=== PATIENT | female | born 1935 | race Caucasian/White ===

== ENCOUNTER 2024-02-08 10:47 | Emergency (ER) | payer MEDICARE, OTHER, SELFPAY ==
[2024-02-08 11:08] VITALS: BP 174/76
[2024-02-08 11:22] VITALS: BMI 22.9
[2024-02-08 11:33] VITALS: BP 157/74
[2024-02-08 11:49] LABS: Hematocrit 33.3 % (37.0-47.0); Hemoglobin 11.2 g/dL (12.0-16.0); Mean Corp Hgb Conc. 33.6 g/dL (33.0-37.0); Mean Corpuscular Hgb 28.7 pg (27.0-31.0); Mean Corpuscular Volume 85.4 fL (81.0-99.0); Mean Platelet Volume 9.6 fL (7.4-10.4); Platelet Count 256 10^3/uL (130-400); Red Cell Dist. Width 13.5 % (11.5-14.5); White Blood Cell Count 9.1 10^3/uL (4.8-10.8)
[2024-02-08 11:55] LABS: ALT (SGPT) 16 U/L (0-35); AST (SGOT) 26 U/L (14-36); Alkaline Phosphatase 84 U/L (38-126); Blood Urea Nitrogen 25 mg/dl (7-17); Calcium 9.4 mg/dl (8.4-10.2); Carbon Dioxide 26 mmol/L (22-30); Chloride 105 mmol/L (98-107); Estimated Creatinine Clearance 38 ml/min; Glucose 168 mg/dl (70-99); Potassium 3.9 mmol/L (3.5-5.1); Sodium 144 mmol/L (135-145); Total Bilirubin 0.4 mg/dl (0.2-1.3); Total Protein 6.6 g/dl (6.3-8.2); eGFR > 60.00
[2024-02-08 12:00] VITALS: BP 174/68
[2024-02-08] MEDS: OMNIPAQUE 50 ML PO (12:04)
[2024-02-08] MEDS: NSS 500 IV (12:05)
[2024-02-08 12:10] LABS: % Basophils 0.6 % (0-2); % Immature Granulocytes 1.1 % (0-0.5); % Lymphocytes 18.1 % (20.5-51.1); % Neutrophils 71.2 % (42.2-75.2); Absolute Basophils 0.1 10^3/uL (0-0.2); Absolute Immature Granulocytes 0.1 10^3/uL (0-0.05); Absolute Lymphocytes 1.6 10^3/uL (1.2-3.4); Absolute Monocytes 0.8 10^3/uL (0.1-0.6); Absolute Neutrophils 6.5 10^3/uL (1.4-6.5); Nucleated Red Blood Cells % 0 %
--- NOTE | 2024-02-08 12:15 | ED.GENMED ---
History of Present Illness
General
Chief Complaint: Abdominal Pain
Source: patient and family
Exam Limitations: none
Time Seen by Provider: 02/08/24 11:19
Nursing documentation reviewed up to this point in time: agreed with
History of Present Illness
History of Present Illness:
Patient is an 88-year-old female who presents to the emergency department with left lower quadrant pain as well as diarrhea. Patient started 1 week ago with diarrhea, chills and mild anorexia. Stool was liquidy without blood or melena. Patient
denies any travel history or antibiotics. Patient has a known diverticular disease and in the past required 3 units of blood because of a diverticular bleed. Patient's diarrhea seemed to clear up about 3 days ago but then had an episode last night
and developed pain which has increased. Patient no longer has fever or chills. Patient denies diminished appetite, nausea or vomiting. Patient denies symptoms. Patient does feel somewhat distended.
Past History
Past History
ED Past Medical History: HTN and Other (Osteoarthritis, gallstones, peptic ulcer disease, diverticular disease)
Social History
Tobacco: Non-smoker
Review of Systems
Review of Systems
All Other Systems: ROS reviewed and negative except as documented in HPI and ROS
Constitutional: Reports chills; Denies fever
EENT: Reports no symptoms
Respiratory: Reports no symptoms
Cardiac: Reports no symptoms
ABD/GI: Reports abdominal pain and diarrhea; Denies nausea, vomiting, bloody stools or black stools
: Reports no symptoms
Musculoskeletal: Reports no symptoms
Skin: Reports no symptoms
Neurological: Reports no symptoms
Hematologic/Lymphatic: Reports no symptoms
Phy Exam
Physical Exam
Physical Exam:
Physical Exam
General: mild distress, alert and appropriate, well nourished, well hydrated
HENT: Normocephalic, supple
Eyes: Clear sclera, conjuctiva without injection
Heart: Regular rhythm and rate. No S3, S4. No murmur.
Lungs: No respiratory distress, no stridor, lung sounds clear and equal bilaterally
Abdomen: Soft, moderate left lower quadrant tenderness with mild guarding but no rebound, no organomegaly, no CVA tenderness, BS good
Neuro: Alert and oriented x 3, CN II - XII intact, no motor focality, no cerebellar dysfunction
Skin: no rash
Psychiatric: well kept. interactive and cooperative
Extremities: No edema, cyanosis, tenderness
Scores
Heart Failure Risk
Heart Failure Risk Score: Not Applicable
Heart Score for Chest Pain Patients
STEMI patient?: Not applicable
Withdrawal Assessment of Alcohol
Withdrawal Assessment Completed?: Not applicable
Course
Orders/Labs/Results
Orders:
Orders
02/08/24 11:23
IV Insert/Care/Rem.- Treatment PRN
02/08/24 11:36
Complete Blood Count/With Diff Urgent
Comprehensive Metabolic Panel Urgent
02/08/24 11:57
0.9% Sodium Chloride 500 ml [Nss] 500 ml IV BOLUS
Iohexol [Omnipaque] See Protocol PO NOW STA
02/08/24 11:58
CT Abd/pel W Iv And Oral Contr Urgent
Comment:
Reason For Exam: Left lower quadrant tenderness
02/08/24 15:01
LevoFLOXacin 500 mg IVPB NOW LevoFLOXacin 500 MG/100 ML [Levaquin] 500 mg in 100 ml IV NOW
MetroNIDAZOLE IVPB 500 mg IVPB NOW MetroNIDAZOLE 500 MG/100 ML [Flagyl 500 mg] 100 ml IV NOW
Abnormal Lab Results
02/08/24
11:36
RBC 3.90 L 10^6/uL
(4.20-5.40)
Hgb 11.2 L g/dL
(12.0-16.0)
Hct 33.3 L %
(37.0-47.0)
Abs Immat Gran (auto) 0.1 H 10^3/uL
(0-0.05)
Absolute Monos (auto) 0.8 H 10^3/uL
(0.1-0.6)
Immature Gran % 1.1 H %
(0-0.5)
Lymphocytes % 18.1 L %
(20.5-51.1)
BUN 25 H mg/dl
(7-17)
Glucose 168 H mg/dl
(70-99)
02/08/24 11:36
02/08/24 11:36
Vital Signs
Initial and Last Documented VS:
Initial Vital Signs
Temp Pulse Resp BP Pulse Ox
98.1 F 74 16 174/76 97
02/08/24 11:08 02/08/24 11:08 02/08/24 11:08 02/08/24 11:08 02/08/24 11:08
Last Documented Vital Signs
Temp Pulse Resp BP Pulse Ox
98.1 F 74 16 213/87 99
02/08/24 11:08 02/08/24 11:08 02/08/24 11:08 02/08/24 14:53 02/08/24 14:53
*Radiology
Radiology exam reviewed: preliminary read by ED provider (Acute diverticulitis)
*Pulse Oximetry
Patient hypoxic: no
*EKG
Interpreted by ED Provider?: NA
*Telehealth Case Manager Interpretation
Rate: Telehealth Case Manager- N/A
*Critical Care Note
Total Time (30-74mins, 75-104mins- exclusive of procedures): Not Applicable
ED Attending Note
-
Portions of this chart may have been created with voice recognition software.� Occasional wrong word or��sound alike� substitutions may have occurred due to the inherent limitations of voice recognition software.
Discharge Plan
Departure
Patient Disposition: Home (Routine Discharge)
Date of Disposition: 02/08/24
Time of Disposition: 15:03
Patient with high blood pressure during this ER visit?: Yes
Condition: Fair
Covid-19: Not Applicable
Discharge Problem:
Acute diverticulitis of intestine
Instructions: Low Fiber Diet, Diverticulitis (DC)
Prescriptions:
New
metronidazole 500 mg tablet
500 mg PO TID Qty: 30 0RF
levofloxacin 500 mg Tablet
500 mg PO DAILY Qty: 10 0RF
Referrals:
UNKNOWN - PT DOES,NOT KNOW [Family Provider] -
Interventions
Interventions:
*Risk Screen - Suicide Last Done: 02/08/24 11:08
*General Assessment Last Done: 02/08/24 11:08
*Neglect/Abuse Screening Last Done: 02/08/24 11:08
ED- Fall Risk Assessment Last Done: 02/08/24 11:22
*ED COVID-19 Vaccine History Last Done: 02/08/24 11:22
YS-Zpghry-Zplwfvtpdl Assessment Last Done: 02/08/24 11:22
Discharge Date and Time
Print Language: GREEK
[2024-02-08 14:51] VITALS: BP 201/89
[2024-02-08 14:53] VITALS: BP 213/87
[2024-02-08] MEDS: FLAGYL 500 MG 100 IV (15:07)
[2024-02-08 15:11] VITALS: BP 216/79
[2024-02-08] MEDS: LEVAQUIN 100 IV (15:39)
== END 2024-02-08 16:19 | disposition home or self-care (01) ==
LOC: EMR 10:47
PROVIDERS: EMERGENCY PHYSICIAN Emergency Medicine
DX: K57.92 Diverticulitis of intestine, part unspecified, without perforation or abscess without bleeding (principal); R19.7 Diarrhea, unspecified; M19.90 Unspecified osteoarthritis, unspecified site; Z87.11 Personal history of peptic ulcer disease
CPT/HCPCS: 99284; 96365; 96367; 74177; 80053; 85025; Q9967

== ENCOUNTER 2024-05-17 16:03 | Inpatient (IN) | payer OTHER, SELFPAY ==
[2024-05-17 14:16] VITALS: BP 191/93
[2024-05-17 14:36] LABS: % Basophils 0.7 % (0-2); % Immature Granulocytes 1.1 % (0-0.5); % Lymphocytes 19.3 % (20.5-51.1); % Monocytes 8.5 % (1.7-9.3); % Neutrophils 70.4 % (42.2-75.2); Absolute Basophils 0.1 10^3/uL (0-0.2); Absolute Immature Granulocytes 0.1 10^3/uL (0-0.05); Absolute Lymphocytes 1.6 10^3/uL (1.2-3.4); Absolute Monocytes 0.7 10^3/uL (0.1-0.6); Absolute Neutrophils 5.8 10^3/uL (1.4-6.5); Hematocrit 28.4 % (37.0-47.0); Hemoglobin 9.2 g/dL (12.0-16.0); Mean Corp Hgb Conc. 32.4 g/dL (33.0-37.0); Mean Corpuscular Hgb 28.8 pg (27.0-31.0); Mean Platelet Volume 9.6 fL (7.4-10.4); Nucleated Red Blood Cells % 0 %; Platelet Count 299 10^3/uL (130-400); Red Blood Cell Count 3.19 10^6/uL (4.20-5.40); Red Cell Dist. Width 13.9 % (11.5-14.5); White Blood Cell Count 8.2 10^3/uL (4.8-10.8)
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
[2024-05-17 14:48] LABS: Lactic Acid 0.9 mmol/L (0.7-2.0)
[2024-05-17 14:49] LABS: ALT (SGPT) 19 U/L (0-35); AST (SGOT) 28 U/L (14-36); Albumin 3.7 g/dl (3.5-5.0); Alkaline Phosphatase 90 U/L (38-126); Blood Urea Nitrogen 30 mg/dl (7-17); Calcium 8.7 mg/dl (8.4-10.2); Carbon Dioxide 28 mmol/L (22-30); Chloride 106 mmol/L (98-107); Glucose 139 mg/dl (70-99); Potassium 4.2 mmol/L (3.5-5.1); Sodium 140 mmol/L (135-145); Total Bilirubin 0.3 mg/dl (0.2-1.3); Total Protein 6.5 g/dl (6.3-8.2); eGFR 43.81
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
[2024-05-17 15:53] VITALS: BMI 28.2
[2024-05-17 16:00] VITALS: BP 145/107
--- NOTE | 2024-05-17 16:17 | PHA.VAN.IN ---
Assessment
- Assessment
Renal Function: Appears elevated from baseline (02/08/24 BASELINE SCR: 0.9)
Concomitant Antimicrobials: ZOSYN
- Previous Dosing Experience
Previous Regimen: NONE
Plan
- Plan
Initial / Loading Dose: 1500MG
Maintenance Regimen: DOSING BY RANDOM LEVEL
Monitoring: RANDOM VANCOMYCIN LEVEL 05/18/24 AM
Pharmacokinetics Vancomycin I
- -
Patient Age: 88
Patient Sex: Female
Vancomycin Day #: 1
Indication: Skin And Soft Tissue ([L] MEDIAL CALF WOUND)
Requesting Provider: NURY
Height / Weight:
Height 5 ft 2 in
Actual Weight 69.853 kg
- Vital Signs / Lab Results
Temp Pulse Resp BP Pulse Ox
97.9 F 80 18 145/107 95
05/17/24 15:54 05/17/24 15:54 05/17/24 15:54 05/17/24 16:00 05/17/24 15:54
Lab Results - Hematology
05/17/24
14:27
WBC 8.2
Lab Results - Chemistry
05/17/24
14:27
BUN 30 H
Creatinine 1.2 H
Albumin 3.7
05/17/24
14:27
Lactic Acid 0.9
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
[2024-05-17] MEDS: ZOSYN 50 IV ×2 (16:54→23:36)
[2024-05-17] MEDS: ADACEL 0.5 ML IM (16:58)
[2024-05-17 17:46] VITALS: BP 179/99
[2024-05-17] MEDS: 0.45%NACL 1000 IV (17:50)
[2024-05-17] MEDS: VANCOCIN 530 MG IV (17:51)
[2024-05-17 17:57] VITALS: BMI 27.3
[2024-05-17] MEDS: PROTONIX 40 MG PO (20:12)
[2024-05-17] MEDS: TYLENOL 1000 MG PO (20:13)
[2024-05-17] MEDS: SENOKOT 8.6 MG PO (20:13)
[2024-05-17] MEDS: CATAPRES 0.1 MG PO (20:13)
[2024-05-17] MEDS: ZOSYN IV (23:23)
[2024-05-18 00:10] VITALS: BP 153/58
[2024-05-18] MEDS: ZOSYN 50 IV ×2 (05:52→13:05)
[2024-05-18] MEDS: TYLENOL 650 MG PO ×2 (05:57→14:17)
[2024-05-18 07:40] VITALS: BP 165/77
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
--- NOTE | 2024-05-18 08:55 | CM ---
Patient seen at bedside. Patient states that she is hurting but doing OK. Patient lives alone in a 2 story home but is currently staying with her daughter in a 2 story home as well. Patient PCP is in [place], Dr. Low Reyes. Patient daughter is
primary contact at this time, Dr. Hortencia Lawson. Patient plan is to stay with daughter for next week and then will depend on condition as to her ability to return to home. Patient will be using the [facility] on [facility] and CM will
continue to follow for discharge planning needs.
Plan home with family; watch for VN needs
--- NOTE | 2024-05-18 09:06 | WOUNDNOTE ---
R ANTERIOR LEG BELOW KNEE
[2024-05-18 09:09] LABS: Hematocrit 27.6 % (37.0-47.0); Mean Corp Hgb Conc. 32.6 g/dL (33.0-37.0); Mean Platelet Volume 9.8 fL (7.4-10.4); Platelet Count 271 10^3/uL (130-400); Red Cell Dist. Width 14.1 % (11.5-14.5); White Blood Cell Count 7.4 10^3/uL (4.8-10.8)
[2024-05-18] MEDS: 0.45%NACL 1000 IV (09:17)
[2024-05-18] MEDS: PROTONIX 40 MG PO (09:17)
[2024-05-18] MEDS: CATAPRES 0.1 MG PO (09:17)
[2024-05-18] MEDS: THERAGRAN 1 TABLET PO (09:17)
[2024-05-18] MEDS: TOPROL XL 100 MG PO (09:17)
[2024-05-18] MEDS: ZESTRIL 40 MG PO (09:17)
[2024-05-18] MEDS: ASPIR LOW (ENTERIC COATED) 81 MG PO (09:17)
[2024-05-18] MEDS: OSCAL CAL 500 500 MG PO (09:18)
[2024-05-18 09:31] LABS: Blood Urea Nitrogen 24 mg/dl (7-17); Calcium 8.6 mg/dl (8.4-10.2); Carbon Dioxide 21 mmol/L (22-30); Chloride 106 mmol/L (98-107); Estimated Creatinine Clearance 36 ml/min; Glucose 209 mg/dl (70-99); Potassium 3.6 mmol/L (3.5-5.1); Sodium 139 mmol/L (135-145); Vancomycin Random 11.2 ug/ml; eGFR 54.53
--- NOTE | 2024-05-18 09:59 | W.PN.SURGUPD ---
Surgical Update
Surgical Update
Seen and examined with CAMERON Sims
I agree with the history/physical exam/assessment and plan
Subjectively feeling better
No complaints this AM
CTA reviewed. SC hematoma medial calf. No deep/muscle component. No active extravasation. Scattered varicosities throughout the LLE.
Recommend:
-leg elevation, gentle external compression
-local wound care medial calf wound
-set up with wound care center for discharge f/u
-iv abx
-ok to ambulate as tolerated
Call with questions/concerns.
PJF3
Vascular Surgery
[2024-05-18 10:13] LABS: Glycohemoglobin (HgbA1c) 6.2 % (4.0-5.6)
[2024-05-18 10:30] VITALS: BP 159/58
--- NOTE | 2024-05-18 10:40 | PHA.VAN.FU ---
Vancomycin Assessment / Plan
- Assessment
Renal Function: SCR Decreasing (1.2->1.0)
WBC's are: WNL
In the past 24 hrs, patient has been: Afebrile
Concomitant Antimicrobials: piperacillin/tazo
- Assessment - Therapeutic Drug Monitoring
Random Level: 11.2 - after 1500 mg load dose yesterday ~1800
- Dosing Plan
Continue: to dose by random level for now
Dosing by Level: Re-dose today (750 mg x 1 dose)
Dosing Comments: at current CrCl - 750 mg q24h predicts an AUC 470
- Monitoring Plan
Random Level: 05/19 0600
- Follow Up
Pharmacy will continue to follow.
Vancomycin Follow UP
- -
Patient Age: 88
Patient Sex: Female
Vancomycin Day #: 2
Indication: Skin And Soft Tissue ([L] MEDIAL CALF WOUND)
Requesting Provider: NURY
Height / Weight:
Height 5 ft 2 in
Actual Weight 67.642 kg
- Vital Signs / Lab Results
Temp Pulse Resp BP Pulse Ox
98.3 F 98 16 159/58 97
05/18/24 07:40 05/18/24 07:40 05/18/24 07:40 05/18/24 10:30 05/18/24 07:40
Lab Results - Hematology
05/17/24 05/18/24
14:27 08:29
WBC 8.2 7.4
Lab Results - Chemistry
05/17/24 05/18/24
14:27 08:29
BUN 30 H 24 H
Creatinine 1.2 H 1.0
Estimated Creat Clear 36
Albumin 3.7
05/17/24
14:27
Lactic Acid 0.9
Therapeutic Drug Monitoring
Random Vancomycin 11.2 ug/ml 05/18/24 08:29
[2024-05-18 11:24] VITALS: BP 156/65; PULSE 62
[2024-05-18] MEDS: VANCOCIN 150 IV (11:45)
--- NOTE | 2024-05-18 13:20 | W.PN.ID1 ---
Date of Service
Date of Service: May 18, 2024
Today's Communication
kefelx 500 mg po qid for 7-14 days
Assessment / Plan
Nonpurulent Cellulitis complicating L aguila hematoma
- blood cultures x2 delayed to today as not done overnight
- CT: hematomas both calfs, no focal collections
- a1c: conrolled
- start keflex 500 mg PO QID x7-14 days
- follow up with pcp
Chief Complaint
-: Cellulitis
Subjective / Review of Systems
afebrile
bp stable
no events overnight
Vital Signs / Physical Exam
Vital Signs
Vital Signs
Temp Pulse Resp BP Pulse Ox
98.3 F 98 16 159/58 97
05/18/24 07:40 05/18/24 07:40 05/18/24 07:40 05/18/24 10:30 05/18/24 07:40
Physical Exam
Constitutional: No Acute Distress
Cardiovascular: Regular Rate and S1/S2; Negative Murmur or Rub
Pulmonary: Clear and Symmetric; Negative Wheezes or Rales
Gastrointestinal: Soft, Non Tender, Non Distended and Normal Bowel Sounds
Skin: Warm and Dry; Negative Rash or Jaundice
Objective Data
Lab Data
Lab Results
05/18/24 08:29
05/18/24 08:29
Estimated Creat Clear 36 ml/min 05/18/24 08:29
Lactic Acid 0.9 mmol/L (0.7-2.0) 05/17/24 14:27
Total Bilirubin 0.3 mg/dl (0.2-1.3) 05/17/24 14:27
AST 28 U/L (14-36) 05/17/24 14:27
ALT 19 U/L (0-35) 05/17/24 14:27
Alkaline Phosphatase 90 U/L (38-126) 05/17/24 14:27
Most recent labs reviewed.
Micro Results:
05/18/24 08:29 Blood Culture - Pending
Blood/Venous
Care Review
Plan reviewed with: Physician (Dr Malik - antibiotics)
[2024-05-18] MEDS: APRESOLINE 10 MG IV (13:38)
--- NOTE | 2024-05-18 14:02 | CM ---
Patient for discharge home with family. Patient to follow up with wound care clinic as per physician. CM will continue to follow for discharge planning needs.
Plan; home with wound care/PCP to follow
[2024-05-18] MEDS: ANCEF 10 IV (14:03)
--- NOTE | 2024-05-18 14:06 | W.DCSUMMARY ---
Discharge Summary
Discharge Data
Date of Admission: 05/17/24
Date of Discharge: 05/18/24
-
Pending Results: No
Hospital Course
Primary diagnoses:
Left lower extremity traumatic, nonpurulent cellulitis
Bilateral lower extremity traumatic hematomas
Acute kidney injury, mild
Secondary diagnoses:
Essential hypertension
h/o Diverticulitis
h/o Bleeding upper gastrointestinal tract ulcer
Macular degeneration
H/o left lower extremity deep vein thrombosis
Consults:
Infectious disease
Vascular surgery
Imaging:
CTA aorta with B/L LE runoff: Probable hematomas within both calves as described. There is no evidence for contrast extravasation into these presumed hematomas, with no findings to suggest active bleeding. No evidence of a focal collection suggest
abscess within either lower extremity. No evidence for arterial occlusion or high-grade stenosis from the aorta through the knees. Somewhat limited evaluation of runoff within the lower legs.
Hospital course: 88-year-old female who presented to the ER yesterday after being sent to the ER by Dr. Sonny Hernandez for bilateral lower extremity trauma and left lower extremity cellulitis as outlined in the H&P done on admission. The patient had a
CT angiogram of the aorta with bilateral lower extremity runoff as above. It was notable for hematomas in both calves. There was no evidence of arterial trauma/compromise. There is no evidence of abscess. Patient was initially placed on
vancomycin and Zosyn for left lower extremity cellulitis. She was also placed on gentle IV fluids. The patient's creatinine improved. She was seen in consultation by vascular surgery infectious disease. She is being transitioned to Keflex for 14
days on discharge. Vascular surgery recommended to elevate her lower extremities and place gentle external compression. Patient was seen in consultation by physical therapy and [place] was not recommended. Patient is being discharged in
medically stable condition.
Discharge Plan
-
Patient Disposition: Home (Routine Discharge)
Discharge Diagnosis/Procedures: Left lower extremity traumatic, nonpurulent cellulitis. Bilateral lower extremity traumatic hematomas.
Condition: Good
Activity: As tolerated
Additional Activity: but may need assistance
Driving Restrictions: Not until seen by your Dr
Wound Care: Please schedule a follow up appointment with wound care in 3-5 days
Activity Restrictions/Additional Instructions:
Wound Care Instructions
L leg medial: Clean with soap and water(can shower) adaptic, ABD pad and aylin change daily and prn drainage.
moisturize legs daily after bathing
Alexandru wrap both legs knee high daily, remove at bedtime
leg elevation above level of heart when sitting
Follow up with Vascular
Referrals:
Sonny Hernandez III, MD [Active] - in two to four weeks (Vascular office follow up- Please call for appointment)
UNKNOWN - PT DOES,NOT KNOW [Family Provider] - in less than 1 week
Prescriptions:
New
pantoprazole 40 mg Tablet,Delayed Release (Dr/Ec)
40 mg PO DAILY Qty: 30 0RF
cephalexin 500 mg capsule
500 mg PO QID Qty: 56 0RF
Continued
sennosides [senna] 8.6 mg Tablet
8.6 mg PO HS
clonidine HCl 0.1 mg Tablet
0.1 mg PO BID
metoprolol succinate [Toprol XL] 100 mg Tablet Extended Release 24 Hr
100 mg PO DAILY
therapeutic multivitamin Tablet
1 tab PO DAILY
aspirin 81 mg Tablet,Delayed Release (Dr/Ec)
81 mg PO DAILY
acetaminophen 650 mg Tablet Extended Release
650 mg PO [id number] PRN (Reason: mild pain)
acetaminophen 650 mg Tablet Extended Release
1,300 mg PO HS
calcium carbonate 600 mg calcium (1,500 mg) Tablet
600 mg PO DAILY
lisinopril 40 mg Tablet
40 mg PO DAILY
vitamin A-vitamin C-vit E-min Tablet
1 tab PO DAILY
Discontinued
cephalexin 500 mg Capsule
500 mg PO BID
Discharge Orders:
Discharge Patient (As Directed); Ordered 05/18/24
Ordered By: Ab Malik
Discharge Date and Time
Print Language: KOREAN
[2024-05-18 14:49] VITALS: BP 171/67
--- NOTE | 2024-05-18 15:30 | PTCARENOTE ---
MD and Patients daughter made aware of last set of VSS. MD okay with patient being discharged.
== END 2024-05-18 15:58 | disposition home or self-care (01) | DRG 603 ==
LOC: 2 NORTH 16:03
PROVIDERS: Emergency Medicine; ADMITTING PHYSICIAN Internal Medicine; EMERGENCY PHYSICIAN Emergency Medicine; OTHER PHYSICIAN Student in an Organized Health Care Education/Training Program
DX: L03.116 Cellulitis of left lower limb (principal); N17.9 Acute kidney failure, unspecified; D62 Acute posthemorrhagic anemia; S80.12XA Contusion of left lower leg, initial encounter; S80.11XA Contusion of right lower leg, initial encounter; I10 Essential (primary) hypertension; H91.90 Unspecified hearing loss, unspecified ear; H35.30 Unspecified macular degeneration; M19.90 Unspecified osteoarthritis, unspecified site; V49.49XA Driver injured in collision with other motor vehicles in traffic accident, initial encounter; W22.11XA Striking against or struck by driver side automobile airbag, initial encounter; Y93.89 Activity, other specified; Y92.410 Unspecified street and highway as the place of occurrence of the external cause; Z96.651 Presence of right artificial knee joint; Z87.11 Personal history of peptic ulcer disease; Z87.19 Personal history of other diseases of the digestive system; Z86.718 Personal history of other venous thrombosis and embolism; Z90.710 Acquired absence of both cervix and uterus; Z88.8 Allergy status to other drugs, medicaments and biological substances; Z79.82 Long term (current) use of aspirin
CPT/HCPCS: 75635; 80048; 80053; 80202; 83036; 83605; 85025; 85027; 87040; 90471; 90715; 96365; 97161; 99284; Q9967

== ENCOUNTER 2024-06-18 21:21 | Inpatient (IN) | payer OTHER, MEDICARE, SELFPAY ==
[2024-06-18 18:53] VITALS: BP 170/90
[2024-06-18 19:46] LABS: % Basophils 0.8 % (0-2); % Immature Granulocytes 0.6 % (0-0.5); % Lymphocytes 22.5 % (20.5-51.1); % Monocytes 9.3 % (1.7-9.3); % Neutrophils 66.8 % (42.2-75.2); Absolute Basophils 0.1 10^3/uL (0-0.2); Absolute Lymphocytes 1.6 10^3/uL (1.2-3.4); Absolute Monocytes 0.7 10^3/uL (0.1-0.6); Absolute Neutrophils 4.7 10^3/uL (1.4-6.5); Hemoglobin 10.7 g/dL (12.0-16.0); Mean Corp Hgb Conc. 31.5 g/dL (33.0-37.0); Mean Corpuscular Volume 85.9 fL (81.0-99.0); Mean Platelet Volume 9.2 fL (7.4-10.4); Nucleated Red Blood Cells % 0 %; Platelet Count 304 10^3/uL (130-400); Red Blood Cell Count 3.96 10^6/uL (4.20-5.40); Red Cell Dist. Width 14.5 % (11.5-14.5); White Blood Cell Count 7.1 10^3/uL (4.8-10.8)
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
[2024-06-18 19:54] VITALS: BMI 27.9
[2024-06-18 20:00] VITALS: BP 203/70
[2024-06-18 20:00] LABS: ALT (SGPT) 17 U/L (0-35); AST (SGOT) 29 U/L (14-36); Albumin 3.9 g/dl (3.5-5.0); Alkaline Phosphatase 117 U/L (38-126); Blood Urea Nitrogen 20 mg/dl (7-17); Calcium 8.8 mg/dl (8.4-10.2); Carbon Dioxide 29 mmol/L (22-30); Chloride 102 mmol/L (98-107); Estimated Creatinine Clearance 40 ml/min; Glucose 158 mg/dl (70-99); Potassium 3.9 mmol/L (3.5-5.1); Sodium 140 mmol/L (135-145); Total Bilirubin 0.3 mg/dl (0.2-1.3); Total Protein 6.6 g/dl (6.3-8.2); eGFR > 60.00
[2024-06-18 20:07] VITALS: BP 186/81
[2024-06-18] MEDS: VANCOCIN 530 MG IV (21:07)
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
[2024-06-18 21:18] LABS: Urine Albumin 2+ (Neg - Trace); Urine Bilirubin Negative (Negative); Urine Character Clear (Clear); Urine Color Yellow; Urine Glucose Negative (Negative); Urine Ketone Negative (Negative); Urine Leukocyte Negative (Negative); Urine Nitrite Negative (Negative); Urine Occult Blood Negative (Negative); Urine Urobilinogen Negative (Neg - 1+)
[2024-06-18 21:26] LABS: Urine Red Blood Cell 0-2 /HPF (0-2)
[2024-06-18 21:27] LABS: Urine Bacteria Few (Negative); Urine White Cell 0-2 /HPF (0-5)
[2024-06-18 22:00] VITALS: BP 196/83
[2024-06-18 22:05] VITALS: BP 196/72
[2024-06-18 22:40] VITALS: BP 197/89; BMI 26.6
[2024-06-19] MEDS: ZOSYN 50 IV ×5 (00:17→23:26)
[2024-06-19] MEDS: ZESTRIL 40 MG PO ×2 (00:18→17:20)
[2024-06-19] MEDS: HEPARIN 5000 UNITS SC ×4 (00:19→23:26)
[2024-06-19] MEDS: CATAPRES 0.2 MG PO ×3 (00:20→20:22)
[2024-06-19] MEDS: TYLENOL 650 MG PO ×2 (01:14→23:24)
--- NOTE | 2024-06-19 04:39 | PTCARENOTE ---
06/18/2024 - PT admitted to room 2134 from the ED @ 22:40. PT transferred from stretcher to bed with an assist x 1. PT oriented to room, call cabrera, place of care. PT is AAOX3 and participated fully in admission questions. Assessment as documented.
[2024-06-19 05:05] VITALS: BP 174/72
[2024-06-19 06:00] VITALS: BMI 26.7
[2024-06-19] MEDS: VANCOCIN 200 IV (06:50)
[2024-06-19 07:16] VITALS: BP 169/79
--- NOTE | 2024-06-19 07:57 | PHA.VAN.IN ---
Addendum entered and electronically signed by Bennie Chaidez [facility] 06/19/24 08:01:
will obtain random level tomorrow before scheduling dosing
Original Note:
Assessment
- Assessment
Renal Function: Appears similar to baseline
Renal Function may be Overestimated due to: age
Concomitant Antimicrobials: zosyn
- Previous Dosing Experience
Previous Regimen: 750mg q24h
Date of Regimen: 04/2024
Provided Trough of: d/cd before
Provided AUC of: d/cd before
Patient's SCR is: Similar to previous dosing experience
Patient's weight is: Similar to previous dosing experience
AUC Dosing Plan
- Dosing Variables
Dosing Weight (kg): 66.22
Dosing CrCl (ml/min): 39
Vd coefficient (L/kg): 0.7
- Empiric Dosing
Initial / Loading Dose: 2500mg (06/18 + 06/19)
Maintenance Regimen: 750mg q24h
Estimated AUC (mcg*h/mL): 448
Estimated Peak (mcg*h/mL): 27.6
Estimated Trough (mcg/ml): 11.8
Estimated Half Life (H): 18.8
- Monitoring
No levels ordered at this time: consider next few days
Pharmacokinetics Vancomycin I
- -
Patient Age: 88
Patient Sex: Female
Vancomycin Day #: 1
Indication: Skin And Soft Tissue
Requesting Provider: Dr. Oliveira
Height / Weight:
Height 5 ft 2 in
Actual Weight 66.224 kg
IBW in k.1
- Vital Signs / Lab Results
Temp Pulse Resp BP Pulse Ox
97.6 F 60 18 174/72 96
06/18/24 22:40 06/19/24 00:20 06/18/24 22:40 06/19/24 05:05 06/19/24 05:05
Lab Results - Hematology
06/18/24
19:36
WBC 7.1
Lab Results - Chemistry
06/18/24
19:36
BUN 20 H
Creatinine 0.9
Estimated Creat Clear 40
Albumin 3.9
06/18/24
19:36
Lactic Acid 2.0
Lab Results - Urine
06/18/24
21:10
Urine Nitrite (Reflex) Negative
Leukocyte Esterase Rfl Negative
Urine WBC (Reflex) 0-2
Ur Squamous Epith Cells 11-15
Urine Bacteria (Reflex) Few A
[2024-06-19 08:09] LABS: Lactic Acid 2.1 mmol/L (0.7-2.0)
[2024-06-19 08:13] LABS: Hematocrit 30.2 % (37.0-47.0); Hemoglobin 9.3 g/dL (12.0-16.0); Mean Corp Hgb Conc. 30.8 g/dL (33.0-37.0); Mean Corpuscular Hgb 26.6 pg (27.0-31.0); Mean Corpuscular Volume 86.3 fL (81.0-99.0); Mean Platelet Volume 9.4 fL (7.4-10.4); Platelet Count 248 10^3/uL (130-400); Red Cell Dist. Width 14.6 % (11.5-14.5); White Blood Cell Count 5.6 10^3/uL (4.8-10.8)
[2024-06-19 08:32] LABS: Blood Urea Nitrogen 23 mg/dl (7-17); Calcium 8.4 mg/dl (8.4-10.2); Carbon Dioxide 27 mmol/L (22-30); Chloride 107 mmol/L (98-107); Estimated Creatinine Clearance 35 ml/min; Glucose 133 mg/dl (70-99); Iron 45 ug/dl (37-170); Potassium 3.9 mmol/L (3.5-5.1); Sodium 141 mmol/L (135-145); eGFR 54.53
[2024-06-19 08:42] LABS: Percent Saturation 15 % (20-50); Total Iron Binding Capacity 286 ug/dl (265-497)
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
[2024-06-19 09:07] LABS: Ferritin 40.7 ng/ml (11.1-264.0)
[2024-06-19] MEDS: TOPROL XL 100 MG PO (10:13)
[2024-06-19 10:33] LABS: Erythrocyte Sed Rate 38 mm/hour (0-20)
[2024-06-19] MEDS: ASPIR LOW (ENTERIC COATED) 81 MG PO (11:15)
[2024-06-19] MEDS: NON-FORMULARY ITEM 1 UNIT PO (12:17)
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
--- NOTE | 2024-06-19 14:09 | CM ---
Reviewed the chart notes and spoke with the patient and her daughter and son-in-law at the bedside. The patient resides alone in a bi-level home with no steps to enter via garage. The patient has a rolling walker, cane, shower chair, and shower
rails in the home if needed. The patient is current with [facility] in [facility]. The patient has not been to a SNF/rehab in the past. The patient confirmed her pharmacy while in this area is [facility].
continues to be available to patient/family and is monitoring medical plan for needs at discharge.
Plan: Discharge plans will depend on the patient's progress.
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
[2024-06-19 15:54] VITALS: BP 178/77
[2024-06-19 19:33] VITALS: BP 159/59
[2024-06-19 23:29] VITALS: BP 171/72
[2024-06-20 06:00] VITALS: BMI 26.9
[2024-06-20] MEDS: ZOSYN 50 IV ×4 (06:05→23:50)
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
[2024-06-20 07:35] LABS: Hematocrit 28.9 % (37.0-47.0); Hemoglobin 9.1 g/dL (12.0-16.0); Mean Corp Hgb Conc. 31.5 g/dL (33.0-37.0); Mean Corpuscular Hgb 26.9 pg (27.0-31.0); Mean Corpuscular Volume 85.5 fL (81.0-99.0); Mean Platelet Volume 9.7 fL (7.4-10.4); Platelet Count 251 10^3/uL (130-400); Red Blood Cell Count 3.38 10^6/uL (4.20-5.40); Red Cell Dist. Width 14.3 % (11.5-14.5); White Blood Cell Count 5.2 10^3/uL (4.8-10.8)
[2024-06-20 07:45] LABS: Vancomycin Random 11.3 ug/ml
[2024-06-20] MEDS: ASPIR LOW (ENTERIC COATED) 81 MG PO (07:52)
[2024-06-20] MEDS: CATAPRES 0.2 MG PO ×2 (07:52→19:27)
[2024-06-20] MEDS: TOPROL XL 100 MG PO (07:52)
[2024-06-20] MEDS: NORVASC 2.5 MG PO (07:52)
[2024-06-20 07:53] LABS: Blood Urea Nitrogen 22 mg/dl (7-17); Calcium 8.7 mg/dl (8.4-10.2); Carbon Dioxide 23 mmol/L (22-30); Chloride 107 mmol/L (98-107); Estimated Creatinine Clearance 35 ml/min; Glucose 112 mg/dl (70-99); Potassium 3.5 mmol/L (3.5-5.1); Sodium 140 mmol/L (135-145); eGFR 54.53
[2024-06-20] MEDS: NON-FORMULARY ITEM 1 UNIT PO (07:53)
[2024-06-20] MEDS: HEPARIN 5000 UNITS SC ×3 (07:53→23:50)
[2024-06-20 07:57] VITALS: BP 210/88
--- NOTE | 2024-06-20 08:07 | PHA.VAN.FU ---
Vancomycin Assessment / Plan
- Assessment
Renal Function: Stable
WBC's are: WNL
In the past 24 hrs, patient has been: Afebrile
Concomitant Antimicrobials: ZOSYN
- Assessment - Therapeutic Drug Monitoring
Random Level: 11.3
- Dosing Plan
Adjust Regimen to: 750MG Q24H
New Regimen Predicts: AUC (489), Peak (29.1), Trough (13.5)
- Monitoring Plan
No level(s) ordered at this time: CONSIDER AT [facility]
- Follow Up
Pharmacy will continue to follow.
Vancomycin Follow UP
- -
Patient Age: 88
Patient Sex: Female
Vancomycin Day #: 2
Indication: Skin And Soft Tissue
Requesting Provider: Dr. Oliveira
Height / Weight:
Height 5 ft 2 in
Actual Weight 66.633 kg
IBW in k.1
- Vital Signs / Lab Results
Temp Pulse Resp BP Pulse Ox
97.4 F 68 18 210/88 97
06/20/24 07:57 06/20/24 07:57 06/20/24 07:57 06/20/24 07:57 06/20/24 07:57
Lab Results - Hematology
06/18/24 06/19/24 06/20/24
19:36 07:44 07:01
WBC 7.1 5.6 5.2
Lab Results - Chemistry
06/18/24 06/19/24 06/20/24
19:36 07:44 07:01
BUN 20 H 23 H 22 H
Creatinine 0.9 1.0 1.0
Estimated Creat Clear 40 35 35
Albumin 3.9
06/18/24 06/19/24
19:36 07:44
Lactic Acid 2.0 2.1 H
Microbiology Results
06/18/24 20:06 Blood Culture - Preliminary
Blood/Venous No Growth in 24 hours- Final report to follow
06/18/24 19:36 Blood Culture - Preliminary
Blood/Venous No Growth in 24 hours- Final report to follow
06/19/24 10:45 Gram Stain - Preliminary
Leg - Left
06/18/24 20:06 Gram Stain - Preliminary
Leg - Left
Therapeutic Drug Monitoring
Random Vancomycin 11.3 ug/ml 06/20/24 07:01
[2024-06-20 09:13] VITALS: BP 168/66
[2024-06-20] MEDS: VANCOCIN 150 IV (10:15)
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
--- NOTE | 2024-06-20 13:19 | W.PN.ID1 ---
Date of Service
Date of Service: June 20, 2024
Today's Communication
Continue Eduardo Coe
Assessment / Plan
# LLE acute cellulitis worse
# LLE hematoma wound with drainage - cx's pending
- To OR for I+D tomorrow, per Surgery
- Wound gram stain: moderate GNR, few GPC, cx pending
- Continue Eduardo Coe pending wound cx's.
# Additional Past Medical History:
Hypertension
Diverticular Disease
GERD / PUD
LLE DVT
Hysterectomy
Right TKA
T&A
Chief Complaint
-: Cellulitis
Subjective / Review of Systems
left leg more red
Vital Signs / Physical Exam
Vital Signs
Vital Signs
Temp Pulse Resp BP Pulse Ox
97.4 F 68 18 168/66 97
06/20/24 07:57 06/20/24 07:57 06/20/24 07:57 06/20/24 09:13 06/20/24 07:57
Physical Exam
Constitutional: No Acute Distress and Comfortable
Eyes: Sclera Anicteric
Pulmonary: Clear
Gastrointestinal: Soft, Non Tender and Non Distended
Extremities: Edema (LLE) and Erythema (LLE erythema darker red)
Wound: Other (LLE wound with packing)
Objective Data
Lab Data
Lab Results
06/20/24 07:01
06/20/24 07:01
ESR 38 mm/hour (0-20) H 06/19/24 07:44
Estimated Creat Clear 35 ml/min 06/20/24 07:01
Lactic Acid 2.1 mmol/L (0.7-2.0) H 06/19/24 07:44
Total Bilirubin 0.3 mg/dl (0.2-1.3) 06/18/24 19:36
AST 29 U/L (14-36) 06/18/24 19:36
ALT 17 U/L (0-35) 06/18/24 19:36
Alkaline Phosphatase 117 U/L (38-126) 06/18/24 19:36
Most recent labs reviewed.
Micro Results:
06/18/24 20:06 Blood Culture - Preliminary
Blood/Venous No Growth in 24 hours- Final report to follow
06/18/24 19:36 Blood Culture - Preliminary
Blood/Venous No Growth in 24 hours- Final report to follow
06/19/24 10:45 Wound Culture - Pending
Leg - Left Gram Stain - Preliminary
06/18/24 20:06 Wound Culture - Pending
Leg - Left Gram Stain - Preliminary
06/20/24 CT LLE: Large ulceration along the anteromedial aspect of the proximal aspect of the lower leg with underlying subcutaneous edema, consistent with cellulitis. No discrete loculated fluid collections. No overt CT evidence for osteomyelitis.
Regional joints demonstrates degenerative changes. No acute fractures or dislocation. Visualized bones are otherwise intact.
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
[2024-06-20 15:19] VITALS: BP 173/67
[2024-06-20] MEDS: APRESOLINE 10 MG IV ×2 (16:07→19:26)
[2024-06-20 17:06] VITALS: BP 170/63
[2024-06-20] MEDS: ZESTRIL 40 MG PO (17:20)
[2024-06-20] MEDS: TYLENOL 650 MG PO (17:24)
[2024-06-20 19:06] VITALS: BP 180/60
--- NOTE | 2024-06-20 19:20 | PTCARENOTE ---
pt has a bP of 210/88 (manual) hr 68 pox 97 RA; T 97.4 ... has a nose bleed, denies headache, or any vision changes. Rechecked BP manually and it came down to 168/[address] Malik made aware of the positive results.
[2024-06-20 21:11] VITALS: BP 135/55
[2024-06-21] VITALS (18 sets, daily range): BP systolic 126–211; BP diastolic 50–86; BMI 26.8
[2024-06-21] MEDS: ZOSYN 50 IV (05:38)
[2024-06-21] MEDS: VANCOCIN 150 IV (06:23)
[2024-06-21] MEDS: TOPROL XL 100 MG PO (07:57)
[2024-06-21] MEDS: ASPIR LOW (ENTERIC COATED) 81 MG PO (07:58)
[2024-06-21] MEDS: HEPARIN 5000 UNITS SC (07:58)
[2024-06-21] MEDS: CATAPRES 0.2 MG PO ×2 (07:58→20:36)
[2024-06-21] MEDS: NORVASC 2.5 MG PO (07:58)
[2024-06-21] MEDS: NON-FORMULARY ITEM 1 UNIT PO (07:59)
[2024-06-21] MEDS: APRESOLINE 10 MG IV ×3 (08:01→19:05)
[2024-06-21 08:52] LABS: Blood Urea Nitrogen 21 mg/dl (7-17); Calcium 8.7 mg/dl (8.4-10.2); Carbon Dioxide 26 mmol/L (22-30); Chloride 107 mmol/L (98-107); Estimated Creatinine Clearance 35 ml/min; Glucose 122 mg/dl (70-99); Potassium 3.6 mmol/L (3.5-5.1); Sodium 142 mmol/L (135-145); eGFR 54.53
[2024-06-21 08:53] LABS: % Basophils 0.7 % (0-2); % Immature Granulocytes 0.6 % (0-0.5); % Lymphocytes 22.9 % (20.5-51.1); % Monocytes 10.6 % (1.7-9.3); % Neutrophils 65.2 % (42.2-75.2); Absolute Lymphocytes 1.2 10^3/uL (1.2-3.4); Absolute Monocytes 0.6 10^3/uL (0.1-0.6); Absolute Neutrophils 3.5 10^3/uL (1.4-6.5); Hemoglobin 9.4 g/dL (12.0-16.0); Mean Corp Hgb Conc. 31.3 g/dL (33.0-37.0); Mean Corpuscular Hgb 26.8 pg (27.0-31.0); Mean Corpuscular Volume 85.5 fL (81.0-99.0); Nucleated Red Blood Cells % 0 %; Platelet Count 275 10^3/uL (130-400); Red Blood Cell Count 3.51 10^6/uL (4.20-5.40); Red Cell Dist. Width 14.6 % (11.5-14.5); White Blood Cell Count 5.4 10^3/uL (4.8-10.8)
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
--- NOTE | 2024-06-21 10:30 | WOUNDNOTE ---
WOC RN note: Sacral shaped silicone border foam applied to sacrum. Air chair cushion given (patient accepted). t/c Bed tech Edmond who will bring up an air bed. Updated RN Erlinda who will coordinate switching her bed to an air bed.
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
--- NOTE | 2024-06-21 11:32 | W.PN.ID1 ---
Date of Service
Date of Service: June 21, 2024
Today's Communication
De-escalate Vanco/Zosyn to ceftriaxone.
Anticipate course of IV ceftriaxone.
Assessment / Plan
# LLE acute wound and cellulitis deteriorated
# Recent hx LLE hematoma wound
- CT LLE no abscess
- To OR for I+D today, per Surgery
- Wound gram stain: moderate GNR, few GPC, Cx's x 2 Proteus
- De-escalate Vanco/Zosyn to ceftriaxone.
- Anticipate course of IV ceftriaxone.
# Additional Past Medical History:
Hypertension
Diverticular Disease
GERD / PUD
LLE DVT
Hysterectomy
Right TKA
T&A
Chief Complaint
-: Cellulitis
Subjective / Review of Systems
Daughter, Dr. Lawson at bedside.
For surgery today.
Vital Signs / Physical Exam
Vital Signs
Vital Signs
Temp Pulse Resp BP Pulse Ox
98.0 F 66 16 193/77 97
06/21/24 07:13 06/21/24 08:01 06/21/24 07:13 06/21/24 08:01 06/21/24 07:13
Physical Exam
Constitutional: No Acute Distress
Gastrointestinal: Soft, Non Tender and Non Distended
Wound: Other (LLE dressing dry)
Objective Data
Lab Data
Lab Results
06/21/24 06:22
06/21/24 06:22
ESR 38 mm/hour (0-20) H 06/19/24 07:44
Estimated Creat Clear 35 ml/min 06/21/24 06:22
Lactic Acid 2.1 mmol/L (0.7-2.0) H 06/19/24 07:44
Total Bilirubin 0.3 mg/dl (0.2-1.3) 06/18/24 19:36
AST 29 U/L (14-36) 06/18/24 19:36
ALT 17 U/L (0-35) 06/18/24 19:36
Alkaline Phosphatase 117 U/L (38-126) 06/18/24 19:36
Most recent labs reviewed.
Micro Results:
06/19/24 10:45 Wound Culture - Final
Leg - Left Proteus mirabilis
Gram Stain - Final
06/18/24 20:06 Wound Culture - Final
Leg - Left Proteus mirabilis
Gram Stain - Final
06/18/24 20:06 Blood Culture - Preliminary
Blood/Venous No Growth in 48 hours- Final report to follow
06/18/24 19:36 Blood Culture - Preliminary
Blood/Venous No Growth in 48 hours- Final report to follow
06/20/24 CT LLE: Large ulceration along the anteromedial aspect of the proximal aspect of the lower leg with underlying subcutaneous edema, consistent with cellulitis. No discrete loculated fluid collections. No overt CT evidence for osteomyelitis.
Regional joints demonstrates degenerative changes. No acute fractures or dislocation. Visualized bones are otherwise intact.
SPEC #: [id number] MANUELA: 06/18/24-2004 STATUS: COMP REQ #: [id number]
RECD: 06/18/24-2016 [facility] DR: Cristino Moore DO
SOURCE: LEG ENTR: 06/18/24-[address] [facility] [address]:
SPDESC: Left
ORDERED: Wound/Other
QUERIES: Date Specimen was Collected 06/18/24
Time Specimen was Collected 1955
Procedure Result Verified
Wound/abscess/other Cult Final 06/21/24-1016
Many Proteus mirabilis
Organism 1 Proteus mirabilis
1. Proteus mirabilis
M.I.C. RX
--------- ---
Amoxicillin/Potas. Clavulanate <=8/4 S
Ampicillin >16 R
Ampicillin/Sulbactam >16/8 R
Aztreonam <=4 S
Cefazolin >16 R
Cefepime <=2 S
Ceftazidime <=1 S
Ceftriaxone <=1 S
Ertapenem <=0.5 S
Ciprofloxacin >2 R
Gentamicin >8 R
Meropenem <=1 S
Piperacillin/Tazobactam <=8 S
Tetracycline >8 R
Tobramycin >8 R
Trimethoprim/Sulfamethoxazole <=2/38 S
--- NOTE | 2024-06-21 12:18 | CM ---
Patient seen at bedside with daughter, Dr. Lawson
NPO for OR later today for wound debridement and washout
On IV antibiotics
Patient has air cushion/Air bed
Current with [facility] in [place].
PLAN: CM to follow hospital progress for needs, short-term plan to to go daughter's home
[2024-06-21] MEDS: ROCEPHIN 2000 MG IV (13:08)
[2024-06-21] MEDS: STERILE WATER FOR INJECTION 20 ML IV (13:09)
[2024-06-21] MEDS: TYLENOL 650 MG PO (14:11)
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
[2024-06-21] MEDS: HEPARIN SC (17:10)
[2024-06-21 17:18] LABS: Vitamin D, 25-OH*** 19.1 ng/mL (30-80)
--- NOTE | 2024-06-21 17:44 | W.PN.UPDATE ---
Update Note
Progress Note Update
attempted to see pt in OR Now
ok to add Spironolactone for HTN -d/w primary
[2024-06-21 17:51] LABS: Vitamin B12 341 pg/ml (239-931)
--- NOTE | 2024-06-21 18:07 | OR.RPT ---
Operative Report
Operative Report
Primary Surgeon: Crow
Pre-op Diagnosis: Left lower extremity wound infection
Post-op Diagnosis: Same
Procedure Performed: Irrigation and debridement of left lower extremity wound
Anesthesia Type: MAC local
Specimen / Cultures: None
Estimated Blood Loss: 35cc
Complications: None immediate
Operative Findings: Devitalized skin, muscle and fascia sharply debrided with #10 blade. Final wound dimensions approx 10cm x 4cm x 1cm. Darin used to aid hemostasis. saline wet to dry packing and ban wrap dressing.Cultures were obtained
previously.
Date of Surgery: 06/21/24
Indications: This 88F developed a hematoma on her left lower extremity that became infected. It was managed expectantly for several weeks with antibiotics however it did not improve. Plan is for irrigation and debridement of the wound.
PROCEDURE: After informed consent was obtained, the patient was brought to the operative suite and placed supine on the operating table. The patient was sedated, prepped and draped in the usual sterile manner and an adequate local anesthetic was
administered using 0.25% Marcaine with epinephrine.
The wound was digitally probed to disrupt loculations and explore the extent of skin undermining. The devitalized skin, muscle and fascia was sharply debrided with a #10 blade back to healthy bleeding tissue. There was no pus, no odor. The wound was
irrigated with sterile saline and hemostasis was obtained with bovie electrocautery. Some oozing at the inferior aspect of the wound and around the skin edge was controlled with darin and direct pressure. A saline moistened gauze was placed into
the wound, an abd pad over that and a gently snugged ban wrap was used to secure the dressing.
The patient tolerated the procedure well and was taken to the PACU in stable condition.
[2024-06-21] MEDS: ZESTRIL 40 MG PO (20:36)
--- NOTE | 2024-06-21 23:42 | PTCARENOTE ---
pt back from pacu- was medicated for htn- bp has normalized- dressing is d/d/i- surgeon wants Lovenox to be held tonight. no need for pain meds at so far but pt understands she can request as needed- she ate a steak dinner brought in by here
daughter.ambulated to bathroom-
[2024-06-22 03:00] VITALS: BP 158/65
[2024-06-22 05:14] VITALS: BMI 26.5
[2024-06-22 07:25] LABS: Hematocrit 29.5 % (37.0-47.0); Hemoglobin 9.2 g/dL (12.0-16.0); Mean Corp Hgb Conc. 31.2 g/dL (33.0-37.0); Mean Corpuscular Hgb 26.7 pg (27.0-31.0); Mean Corpuscular Volume 85.5 fL (81.0-99.0); Mean Platelet Volume 9.6 fL (7.4-10.4); Platelet Count 287 10^3/uL (130-400); Red Blood Cell Count 3.45 10^6/uL (4.20-5.40); Red Cell Dist. Width 14.8 % (11.5-14.5); White Blood Cell Count 4.7 10^3/uL (4.8-10.8)
[2024-06-22 07:35] LABS: Blood Urea Nitrogen 32 mg/dl (7-17); Calcium 8.7 mg/dl (8.4-10.2); Carbon Dioxide 24 mmol/L (22-30); Chloride 107 mmol/L (98-107); Estimated Creatinine Clearance 27 ml/min; Glucose 136 mg/dl (70-99); Magnesium 2.2 mg/dl (1.6-2.3); Sodium 140 mmol/L (135-145)
[2024-06-22 07:40] VITALS: BP 153/71
[2024-06-22] MEDS: FEOSOL 325 MG PO (08:09)
[2024-06-22] MEDS: ASPIR LOW (ENTERIC COATED) 81 MG PO (08:09)
[2024-06-22] MEDS: NORVASC 2.5 MG PO (08:10)
[2024-06-22] MEDS: TOPROL XL 100 MG PO (08:11)
[2024-06-22] MEDS: CATAPRES 0.2 MG PO ×2 (08:12→20:35)
[2024-06-22] MEDS: ALDACTONE 12.5 MG PO (08:13)
[2024-06-22] MEDS: NON-FORMULARY ITEM 1 UNIT PO (08:13)
[2024-06-22 08:43] LABS: Potassium 4.1 mmol/L (3.5-5.1)
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
[2024-06-22] MEDS: NSS 1000 IV (10:25)
--- NOTE | 2024-06-22 11:09 | CM ---
Addendum entered by Anne Arriaza, RN 06/22/24 16:26:
[facility] and [facility] unable to provide service due to staffing. Referral sent to [facility]. Awaiting response.
Original Note:
Reviewed the chart notes. Received copy of IV abx, faxed to [facility] for pricing. Per notes, plan is for wound vac to be placed on the patient's LLE wound. CM continues to be available to patient/family and is monitoring medical plan for needs
at discharge.
Plan: Discharge temporarily to daughter's home with IV abx and VN.
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
--- NOTE | 2024-06-22 12:21 | CHAP ---
Msgr. Javan Omalley of [facility] in [place] gave La Holy Communion, and anointed her.
[2024-06-22 12:25] VITALS: BP 150/56; PULSE 62
[2024-06-22] MEDS: TYLENOL 650 MG PO (12:52)
[2024-06-22] MEDS: STERILE WATER FOR INJECTION 20 ML IV (12:54)
[2024-06-22] MEDS: ROCEPHIN 2000 MG IV (12:54)
--- NOTE | 2024-06-22 13:33 | W.PN.NEPH.PH ---
Today's Communication / Plan
-
follow renal function with IVF
check bladder scan
Assessment/Plan
-
Assessment
Hypertension
Bilateral adrenaloma
Left lower leg cellulitis, hematoma/wound
GERD
Left lower leg DVT
ERICA
Plan:
Mild ERICA-likely related to contrast on 06/20
initial UA bland with 2+alb, check U PCR and UA if cr still up tomorrow
started on IVF, ACEI on hold
agree with starting spironolactone and monitor cr closely
likely able to consolidate meds
renal duplex neg for JENNIFER, other secondary w/.u pending
avoid nephrotoxins
check bladder scan
abx per ID, s/p I&D on 06/21, likely no abscess
d/w pt
-
-
Date of Service: June 22, 2024
CC / HPI / ROS
-
Chief Complaint:
HTN, ERICA
History of Present Illness:
cr up at 1.3, s/p I&D of left leg 06/21
BP slightly better today, no fever
hb stable at 9.2
Review of Systems:
no cp or sob
feels well
took tylenol for pain
no dysuria
Labs
-
Labs:
WBC 4.7 10^3/uL (4.8-10.8) L 06/22/24 06:18
RBC 3.45 10^6/uL (4.20-5.40) L 06/22/24 06:18
Hgb 9.2 g/dL (12.0-16.0) L 06/22/24 06:18
Hct 29.5 % (37.0-47.0) L 06/22/24 06:18
Plt Count 287 10^3/uL (130-400) 06/22/24 06:18
Sodium 140 mmol/L (135-145) 06/22/24 06:18
Potassium 4.1 mmol/L (3.5-5.1) 06/22/24 06:18
Chloride 107 mmol/L (98-107) 06/22/24 06:18
Carbon Dioxide 24 mmol/L (22-30) 06/22/24 06:18
BUN 32 mg/dl (7-17) H 06/22/24 06:18
Creatinine 1.3 mg/dL (0.6-1.0) H 06/22/24 06:18
eGFR 39.80 06/22/24 06:18
Glucose 136 mg/dl (70-99) H 06/22/24 06:18
Calcium 8.7 mg/dl (8.4-10.2) 06/22/24 06:18
Albumin 3.9 g/dl (3.5-5.0) 06/18/24 19:36
Physical Exam
-
Vital Signs:
Vital Signs
Temp Pulse Resp BP Pulse Ox
97.8 F 86 11 153/71 95
06/22/24 07:40 06/22/24 08:13 06/22/24 07:40 06/22/24 08:13 06/22/24 07:40
Cardiovascular:: Regular rate and rhythm
Respiratory:: Bilateral: CTA
Lung Excursion:: Normal
Abdomen:: Nontender and Soft
Extremity Edema:: +2: Left: and None: Right:
Hernandez Catheter: No
[2024-06-22 15:25] VITALS: BP 158/65
[2024-06-22] MEDS: LOVENOX 30 MG SC (18:22)
[2024-06-22 23:02] VITALS: BP 147/55
[2024-06-23 05:53] VITALS: BMI 27.5
[2024-06-23 07:39] LABS: Blood Urea Nitrogen 37 mg/dl (7-17); Calcium 8.7 mg/dl (8.4-10.2); Carbon Dioxide 25 mmol/L (22-30); Chloride 107 mmol/L (98-107); Estimated Creatinine Clearance 33 ml/min; Glucose 96 mg/dl (70-99); Potassium 4.4 mmol/L (3.5-5.1); Sodium 139 mmol/L (135-145); eGFR 48.63
[2024-06-23 07:46] VITALS: BP 187/80
[2024-06-23] MEDS: ALDACTONE 12.5 MG PO ×2 (08:00→12:34)
[2024-06-23] MEDS: FEOSOL 325 MG PO (08:00)
[2024-06-23] MEDS: CATAPRES 0.2 MG PO ×2 (08:01→18:16)
[2024-06-23] MEDS: ASPIR LOW (ENTERIC COATED) 81 MG PO (08:01)
[2024-06-23] MEDS: NORVASC 2.5 MG PO (08:01)
[2024-06-23] MEDS: TOPROL XL 100 MG PO (08:01)
[2024-06-23] MEDS: NON-FORMULARY ITEM 1 UNIT PO (08:02)
[2024-06-23 08:59] VITALS: BP 168/54
[2024-06-23] MEDS: ULTRAM 25 MG PO ×2 (09:09→15:13)
[2024-06-23] MEDS: ZESTRIL 20 MG PO ×2 (09:11→18:16)
[2024-06-23 09:25] LABS: Aldosterone/Renin Activ Ratio 13.4 ratio (<=25.0); Renin Activity Results 0.3 ng/mL/hr
--- NOTE | 2024-06-23 09:56 | WOUNDNOTE ---
L CALF (MEDIAL)(with photo flash)
--- NOTE | 2024-06-23 10:01 | WOUNDNOTE ---
[facility] RN Note: Patient seen with Dr. Maria who removed patient's LLE dressing. He silver nitrated small area of bleeding with success. Assisted Dr. Maria with application of wound vac. RN Nuha premedicated patient for pain prior. Patient
tolerated dressing change well. Skin on sacrum and heels intact. Patient ambulates to bathroom with walker. Dr. Myers was in and stated patient may be able to go home as soon as tomorrow. Discussed with MARYCHUY Ruffin who is finding a VN for vac
dressing changes. Faxed home ready care vac to Hannah Mcallister from [facility].
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
--- NOTE | 2024-06-23 10:36 | CM ---
Addendum entered by Anne Arriaza RN 06/23/24 15:57:
CM spoke with Marialuisa liaison with [facility]. Per Marialuisa, they will follow the patient for wound care and [facility] will follow for midline maintenance and IV medications and supplies. Waiting on cost from [facility] for medication and supplies.
Addendum entered by Anne Arriaza RN 06/23/24 15:01:
CM sent in Care Port face sheet with listed medical insurance and auto insurance information ro [facility]. [facility] will review and response in Care Port.
Original Note:
Reviewed the chart notes. CM spoke with Sanket with [facility], referral received. [facility] provided with patient auto insurance information to use for cost analysis. Wound vac placed today. CM spoke with [facility] and provided
information to see if able to follow patient at discharge. Jean Carlos and Estevan were unable to follow due to staffing issues.
Claim Number:[id number]
Policy Number:[id number]
Unloader Rashmi Nguyen /
Plan: Discharge to daughter's home when medically stable.
--- NOTE | 2024-06-23 12:01 | W.PN.NEPH.PH ---
Today's Communication / Plan
-
increase spironolactone
Assessment/Plan
-
Assessment
Hypertension
Bilateral adrenaloma
Left lower leg cellulitis, hematoma/wound
GERD
Left lower leg DVT
ERICA
Plan:
follow BMP
increase spironolactone to 25mg daily
can stop amlodipine if BP drops
secondary w/u unremarkable, pheo pending
-
-
Date of Service: June 23, 2024
CC / HPI / ROS
-
Chief Complaint:
HTN, ERICA
History of Present Illness:
Cr better at 1.1
s/p I&D of left leg 06/21, now with VAC
BP stable high
Review of Systems:
no cp or sob
feels well
no dysuria
Labs
-
Labs:
WBC 4.7 10^3/uL (4.8-10.8) L 06/22/24 06:18
RBC 3.45 10^6/uL (4.20-5.40) L 06/22/24 06:18
Hgb 9.2 g/dL (12.0-16.0) L 06/22/24 06:18
Hct 29.5 % (37.0-47.0) L 06/22/24 06:18
Plt Count 287 10^3/uL (130-400) 06/22/24 06:18
Sodium 139 mmol/L (135-145) 06/23/24 06:17
Potassium 4.4 mmol/L (3.5-5.1) 06/23/24 06:17
Chloride 107 mmol/L (98-107) 06/23/24 06:17
Carbon Dioxide 25 mmol/L (22-30) 06/23/24 06:17
BUN 37 mg/dl (7-17) H 06/23/24 06:17
Creatinine 1.1 mg/dL (0.6-1.0) H 06/23/24 06:17
eGFR 48.63 06/23/24 06:17
Glucose 96 mg/dl (70-99) 06/23/24 06:17
Calcium 8.7 mg/dl (8.4-10.2) 06/23/24 06:17
Albumin 3.9 g/dl (3.5-5.0) 06/18/24 19:36
Physical Exam
-
Vital Signs:
Vital Signs
Temp Pulse Resp BP Pulse Ox
98.1 F 72 16 168/54 96
06/23/24 07:46 06/23/24 09:11 06/23/24 07:46 06/23/24 09:11 06/23/24 07:46
Cardiovascular:: Regular rate and rhythm
Respiratory:: Bilateral: Coarse
Lung Excursion:: Normal
Abdomen:: Nontender and Soft
Bowel Sounds:: Normal
Extremity Edema:: +1: Bilateral:
--- NOTE | 2024-06-23 12:08 | WOUNDNOTE ---
WOC RN note: Faxed home ready care vac authorization paperwork to Hannah Mcallister from [facility]. Hannah to notify this staff writer when approved.
[2024-06-23] MEDS: ROCEPHIN 2000 MG IV (12:33)
[2024-06-23] MEDS: STERILE WATER FOR INJECTION 20 ML IV (12:34)
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
[2024-06-23 16:26] VITALS: BP 168/65
--- NOTE | 2024-06-23 16:45 | WOUNDNOTE ---
WOC RN note: Hannah Mcallister from [facility] notified this travel writer that patient's ready home vac was approved. Home ready vac is in this travel writer's office and will bring to patient on day of discharge.
[2024-06-23] MEDS: LOVENOX 30 MG SC (17:26)
[2024-06-23 17:59] VITALS: BP 164/62
[2024-06-23 23:29] VITALS: BP 172/71
[2024-06-24] VITALS (7 sets, daily range): BP systolic 144–195; BP diastolic 52–99; PULSE 61; O2SAT 98; BMI 26.4
[2024-06-24 05:48] LABS: Blood Urea Nitrogen 30 mg/dl (7-17); Calcium 8.9 mg/dl (8.4-10.2); Carbon Dioxide 23 mmol/L (22-30); Chloride 107 mmol/L (98-107); Estimated Creatinine Clearance 39 ml/min; Glucose 120 mg/dl (70-99); Potassium 4.1 mmol/L (3.5-5.1); Sodium 137 mmol/L (135-145); eGFR > 60.00
[2024-06-24] MEDS: APRESOLINE 10 MG IV ×2 (07:40→17:18)
[2024-06-24] MEDS: TYLENOL 650 MG PO ×2 (07:49→20:06)
[2024-06-24] MEDS: ZESTRIL 20 MG PO ×2 (08:03→20:07)
[2024-06-24] MEDS: NORVASC 2.5 MG PO ×2 (08:04→09:03)
[2024-06-24] MEDS: ALDACTONE 25 MG PO (08:04)
[2024-06-24] MEDS: ASPIR LOW (ENTERIC COATED) 81 MG PO (08:05)
[2024-06-24] MEDS: FEOSOL 325 MG PO (08:05)
[2024-06-24] MEDS: CATAPRES 0.2 MG PO ×2 (08:05→20:07)
[2024-06-24] MEDS: TOPROL XL 100 MG PO (08:05)
[2024-06-24] MEDS: NON-FORMULARY ITEM 1 UNIT PO (08:09)
--- NOTE | 2024-06-24 10:04 | W.PN.ID1 ---
Date of Service
Date of Service: June 24, 2024
Today's Communication
Continue ceftriaxone through 07/05/24.
Assessment / Plan
# LLE acute wound infection and cellulitis
# Recent hx LLE hematoma wound
- CT LLE no abscess
- s/p OR for I+D 06/21/24
- wound vac in place
- Wound gram stain: moderate GNR, few GPC, Cx's x 2 Proteus
- Continue ceftriaxone through 07/05/24.
- Infusion sheet submitted to pillowcase sewer.
- midline in place
# Additional Past Medical History:
Hypertension
Diverticular Disease
GERD / PUD
LLE DVT
Hysterectomy
Right TKA
T&A
Chief Complaint
-: Cellulitis
Subjective / Review of Systems
No diarrhea.
Vital Signs / Physical Exam
Vital Signs
Vital Signs
Temp Pulse Resp BP Pulse Ox
97.7 F 67 18 146/52 97
06/24/24 08:14 06/24/24 09:09 06/24/24 08:14 06/24/24 09:09 06/24/24 08:14
Physical Exam
Constitutional: No Acute Distress and Comfortable
Gastrointestinal: Soft, Non Tender and Non Distended
Wound: Other (LLE wound vac in place)
Neurological: AO x 3
Lines: Other (RUE midline intact)
Objective Data
Lab Data
Lab Results
06/22/24 06:18
06/24/24 05:12
ESR 38 mm/hour (0-20) H 06/19/24 07:44
Estimated Creat Clear 39 ml/min 06/24/24 05:12
Lactic Acid 2.1 mmol/L (0.7-2.0) H 06/19/24 07:44
Total Bilirubin 0.3 mg/dl (0.2-1.3) 06/18/24 19:36
AST 29 U/L (14-36) 06/18/24 19:36
ALT 17 U/L (0-35) 06/18/24 19:36
Alkaline Phosphatase 117 U/L (38-126) 06/18/24 19:36
Most recent labs reviewed.
Micro Results:
06/18/24 20:06 Blood Culture - Final
Blood/Venous No Growth - Final Report
06/18/24 19:36 Blood Culture - Final
Blood/Venous No Growth - Final Report
06/19/24 10:45 Wound Culture - Final
Leg - Left Proteus mirabilis
Gram Stain - Final
06/18/24 20:06 Wound Culture - Final
Leg - Left Proteus mirabilis
Gram Stain - Final
06/20/24 CT LLE: Large ulceration along the anteromedial aspect of the proximal aspect of the lower leg with underlying subcutaneous edema, consistent with cellulitis. No discrete loculated fluid collections. No overt CT evidence for osteomyelitis.
Regional joints demonstrates degenerative changes. No acute fractures or dislocation. Visualized bones are otherwise intact.
SPEC #: [id number] MANUELA: 06/18/24-2004 STATUS: COMP REQ #: [id number]
RECD: 06/18/24-2016 [facility] DR: Cristino Moore DO
SOURCE: LEG ENTR: 06/18/24-[address] [facility] [address]:
SPDESC: Left
ORDERED: Wound/Other
QUERIES: Date Specimen was Collected 06/18/24
Time Specimen was Collected 1955
Procedure Result Verified
Wound/abscess/other Cult Final 06/21/24-1016
Many Proteus mirabilis
Organism 1 Proteus mirabilis
1. Proteus mirabilis
M.I.C. RX
--------- ---
Amoxicillin/Potas. Clavulanate <=8/4 S
Ampicillin >16 R
Ampicillin/Sulbactam >16/8 R
Aztreonam <=4 S
Cefazolin >16 R
Cefepime <=2 S
Ceftazidime <=1 S
Ceftriaxone <=1 S
Ertapenem <=0.5 S
Ciprofloxacin >2 R
Gentamicin >8 R
Meropenem <=1 S
Piperacillin/Tazobactam <=8 S
Tetracycline >8 R
Tobramycin >8 R
Trimethoprim/Sulfamethoxazole <=2/38 S
--- NOTE | 2024-06-24 10:40 | CM ---
Addendum entered by Anne Arriaza RN 06/24/24 16:25:
IMM reviewed and placed on chart. [facility] termite control service representative in to educate the patient and her daughter at bedside on IV abx administration.
Original Note:
Reviewed the chart notes and spoke with Sanket with [facility]. Per Sanket, no cost for IV abx and supplies. CM continues to be available to patient/family and is monitoring medical plan for needs at discharge.
Plan: Discharge to patient's daughter's home with [facility] for wound vac care and [facility] for IV abx and midline management. Midline information faxed to [facility].
--- NOTE | 2024-06-24 12:10 | W.PN.NEPH.PH ---
Today's Communication / Plan
-
increase CCB
Assessment/Plan
-
Assessment
Hypertension
Bilateral adrenaloma
Left lower leg cellulitis, hematoma/wound
GERD
Left lower leg DVT
ERICA
Plan:
follow BMP
increase amlodipine to 5
can increase amlodipine alt with spirolactone.
will avoid increasing clonidine due to fatigue
goal BP ~150 at this time.
secondary w/u unremarkable
-
-
Date of Service: June 24, 2024
CC / HPI / ROS
-
Chief Complaint:
HTN, ERICA
History of Present Illness:
Cr better at 0.9
s/p I&D of left leg 06/21, now with VAC
BP stable high
Review of Systems:
no cp or sob
feels well
no dysuria
Labs
-
Labs:
WBC 4.7 10^3/uL (4.8-10.8) L 06/22/24 06:18
RBC 3.45 10^6/uL (4.20-5.40) L 06/22/24 06:18
Hgb 9.2 g/dL (12.0-16.0) L 06/22/24 06:18
Hct 29.5 % (37.0-47.0) L 06/22/24 06:18
Plt Count 287 10^3/uL (130-400) 06/22/24 06:18
Sodium 137 mmol/L (135-145) 06/24/24 05:12
Potassium 4.1 mmol/L (3.5-5.1) 06/24/24 05:12
Chloride 107 mmol/L (98-107) 06/24/24 05:12
Carbon Dioxide 23 mmol/L (22-30) 06/24/24 05:12
BUN 30 mg/dl (7-17) H 06/24/24 05:12
Creatinine 0.9 mg/dL (0.6-1.0) 06/24/24 05:12
eGFR > 60.00 06/24/24 05:12
Glucose 120 mg/dl (70-99) H 06/24/24 05:12
Calcium 8.9 mg/dl (8.4-10.2) 06/24/24 05:12
Albumin 3.9 g/dl (3.5-5.0) 06/18/24 19:36
Physical Exam
-
Vital Signs:
Vital Signs
Temp Pulse Resp BP Pulse Ox
97.7 F 67 18 146/52 97
06/24/24 08:14 06/24/24 09:09 06/24/24 08:14 06/24/24 09:09 06/24/24 08:14
Cardiovascular:: Regular rate and rhythm
Respiratory:: Bilateral: CTA
Lung Excursion:: Normal
Abdomen:: Nontender and Soft
Bowel Sounds:: Normal
Extremity Edema:: None: Bilateral:
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
[2024-06-24] MEDS: STERILE WATER FOR INJECTION 20 ML IV (13:30)
[2024-06-24] MEDS: ROCEPHIN 2000 MG IV (13:30)
[2024-06-24] MEDS: LOVENOX 30 MG SC (16:59)
[2024-06-25] VITALS (7 sets, daily range): BP systolic 142–183; BP diastolic 57–81; BMI 27.3
[2024-06-25] MEDS: ULTRAM 25 MG PO (08:52)
[2024-06-25] MEDS: ALDACTONE 25 MG PO (08:54)
[2024-06-25] MEDS: ZESTRIL 20 MG PO ×2 (08:54→20:05)
[2024-06-25] MEDS: TOPROL XL 100 MG PO (08:54)
[2024-06-25] MEDS: NORVASC 5 MG PO ×2 (08:54→20:05)
[2024-06-25] MEDS: FEOSOL 325 MG PO (08:54)
[2024-06-25] MEDS: CATAPRES 0.2 MG PO ×2 (08:54→20:04)
[2024-06-25] MEDS: ASPIR LOW (ENTERIC COATED) 81 MG PO (08:54)
[2024-06-25] MEDS: NON-FORMULARY ITEM 1 UNIT PO (08:55)
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
--- NOTE | 2024-06-25 10:11 | CM ---
Reviewed the chart notes. Patient for discharge to home today with Jean [facility] HERNANDEZ for wound vac management and [facility] of IV abx and midline management. CM continues to be available to patient/family and is monitoring medical plan for needs at
discharge.
Plan: Discharge to home today with [facility] HERNAN[facility]. Patient's daughter to transport.
Jean Carlos HERNANDEZ [facility]
--- NOTE | 2024-06-25 10:27 | W.PN.NEPH.PH ---
Today's Communication / Plan
-
see plan
Assessment/Plan
-
Assessment
Hypertension
Bilateral adrenaloma
Left lower leg cellulitis, hematoma/wound
GERD
Left lower leg DVT
ERICA
Plan:
HTN-Am BPs high, cotn ACEI BID, move Amlodipine to night
HIgh dose Amlodipine gave her edema, dose increased on 06/24
can increase spironolactone if needed, last increased on 06/23
will avoid increasing clonidine or BB due to fatigue
goal BP ~150 at this time.
secondary w/u unremarkable
d/w pt and Dr Lawson at bedside
-
-
Date of Service: June 25, 2024
CC / HPI / ROS
-
Chief Complaint:
HTN, ERICA
History of Present Illness:
Cr better at 0.9 on 06/24
s/p I&D of left leg 06/21, now with VAC
BP stable high in am
Review of Systems:
no cp or sob
feels well
no dysuria
pain controlled with tylenol
Labs
-
Labs:
WBC 4.7 10^3/uL (4.8-10.8) L 06/22/24 06:18
RBC 3.45 10^6/uL (4.20-5.40) L 06/22/24 06:18
Hgb 9.2 g/dL (12.0-16.0) L 06/22/24 06:18
Hct 29.5 % (37.0-47.0) L 06/22/24 06:18
Plt Count 287 10^3/uL (130-400) 06/22/24 06:18
Sodium 137 mmol/L (135-145) 06/24/24 05:12
Potassium 4.1 mmol/L (3.5-5.1) 06/24/24 05:12
Chloride 107 mmol/L (98-107) 06/24/24 05:12
Carbon Dioxide 23 mmol/L (22-30) 06/24/24 05:12
BUN 30 mg/dl (7-17) H 06/24/24 05:12
Creatinine 0.9 mg/dL (0.6-1.0) 06/24/24 05:12
eGFR > 60.00 06/24/24 05:12
Glucose 120 mg/dl (70-99) H 06/24/24 05:12
Calcium 8.9 mg/dl (8.4-10.2) 06/24/24 05:12
Albumin 3.9 g/dl (3.5-5.0) 06/18/24 19:36
Physical Exam
-
Vital Signs:
Vital Signs
Temp Pulse Resp BP Pulse Ox
98.6 F 72 17 183/81 97
06/25/24 08:05 06/25/24 08:54 06/25/24 08:05 06/25/24 08:54 06/25/24 08:05
Cardiovascular:: Regular rate and rhythm
Respiratory:: Bilateral: CTA
Lung Excursion:: Normal
Abdomen:: Nontender and Soft
Extremity Edema:: +1: Left: and None: Right:
Hernandez Catheter: No
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
--- NOTE | 2024-06-25 11:00 | WOUNDNOTE ---
[facility] RN note: Patient's LLE vac dressing changed. Dr. Llanos and Dr. Myers and patient's daughter Dr. Lawson present. Wound mold cleaner. Surrounding erythema remains (improves with leg elevation). Trace-+1 LLE edema. Patient tolerated dressing change.
Skin on heels and sacrum intact. [place] texted Dr. Maria wound photo in case he wants any change in treatment. Await response. Instructed Dr. Lawson how to turn on/off home vac pump, how to switch from [facility] vac to home vac, how to
trouble shoot vac alarms including blockage, air leak. Instructed how to clamp, disconnect and reconnect vac tubing and how to plug in pump. Instructed patient and daughter if john bleeding occurs, to disconnect vac dressing tubing from pump
canister tubing, turn off vac pump and call 911. Elevated patient's heels off bed with pillow. Patient aware to take air chair cushion home. Appetite fair-good. Patient for possible discharge today or tomorrow with VN. Dr. Lawson to contact this
[employer] for any questions regarding home vac.
--- NOTE | 2024-06-25 11:05 | WOUNDNOTE ---
[facility] RN note: Patient has home vac equipment and signed proof of delivery form.
[2024-06-25] MEDS: ROCEPHIN 2000 MG IV (11:42)
[2024-06-25] MEDS: STERILE WATER FOR INJECTION 20 ML IV (11:42)
--- NOTE | 2024-06-25 14:10 | WOUNDNOTE ---
[facility] RN Note: Confirmed with Dr. Maria, patient to follow up at wound care center. Discharge instructions updated.
[2024-06-25] MEDS: APRESOLINE 10 MG IV (15:55)
[2024-06-25] MEDS: LOVENOX 30 MG SC (18:15)
[2024-06-25 18:57] LABS: Blood Urea Nitrogen 20 mg/dl (7-17); Calcium 8.9 mg/dl (8.4-10.2); Carbon Dioxide 22 mmol/L (22-30); Chloride 105 mmol/L (98-107); Estimated Creatinine Clearance 40 ml/min; Glucose 201 mg/dl (70-99); Potassium 3.7 mmol/L (3.5-5.1); Sodium 139 mmol/L (135-145); eGFR > 60.00
[2024-06-25] MEDS: STERILE WATER FOR INJECTION 10 ML IV (20:05)
[2024-06-25] MEDS: ROCEPHIN 1000 MG IV (20:06)
[2024-06-26 05:15] VITALS: BMI 26.8
[2024-06-26] MEDS: APRESOLINE 10 MG IV (06:25)
[2024-06-26 08:00] VITALS: BP 191/81
[2024-06-26] MEDS: FEOSOL 325 MG PO (09:09)
[2024-06-26] MEDS: CATAPRES 0.2 MG PO ×2 (09:09→20:39)
[2024-06-26] MEDS: TOPROL XL 100 MG PO (09:09)
[2024-06-26] MEDS: ZESTRIL 20 MG PO ×2 (09:10→20:39)
[2024-06-26] MEDS: NORVASC 5 MG PO (09:10)
[2024-06-26] MEDS: ALDACTONE 25 MG PO (09:10)
[2024-06-26] MEDS: ASPIR LOW (ENTERIC COATED) 81 MG PO (09:10)
[2024-06-26] MEDS: NON-FORMULARY ITEM 1 UNIT PO (09:13)
[2024-06-26] MEDS: BUMEX 1 MG IV (10:12)
[2024-06-26] MEDS: FLUSH (NSS) 2 FLUSH IV (10:13)
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
[2024-06-26 12:00] VITALS: BP 160/84
[2024-06-26] MEDS: KCL 20 MEQ PO (12:48)
[2024-06-26] MEDS: FLORASTOR 250 MG PO ×2 (12:50→20:39)
[2024-06-26 12:57] LABS: Glycohemoglobin (HgbA1c) 5.9 % (4.0-5.6)
[2024-06-26 16:00] VITALS: BP 155/81
[2024-06-26] MEDS: LOVENOX 30 MG SC (17:22)
[2024-06-26] MEDS: APRESOLINE 25 MG PO ×2 (17:22→22:12)
--- NOTE | 2024-06-26 17:24 | W.PN.NEPH.PH ---
Today's Communication / Plan
-
meds adjusted earlierr-monitor for now
Assessment/Plan
-
Assessment
Hypertension
Bilateral adrenaloma
Left lower leg cellulitis, hematoma/wound
GERD
Left lower leg DVT
ERICA
Plan:
HTN-Am BPs high, cotn ACEI BID, Amlodipine change to hydralzine per primary and DR greene
HIgh dose Amlodipine gave her edema
can increase spironolactone if needed, last increased on 06/23
also s/p bumex -see if it helps
will avoid increasing clonidine or BB due to fatigue
goal BP ~150 at this time.
secondary w/u unremarkable
d/w pt
-
-
Date of Service: June 26, 2024
CC / HPI / ROS
-
Chief Complaint:
HTN, ERICA
History of Present Illness:
Cr better at 0.9 on 06/24
s/p I&D of left leg 06/21, now with VAC
BP stable high in am
Review of Systems:
no cp or sob
feels well
no dysuria
pain controlled with tylenol
Labs
-
Labs:
WBC 4.7 10^3/uL (4.8-10.8) L 06/22/24 06:18
RBC 3.45 10^6/uL (4.20-5.40) L 06/22/24 06:18
Hgb 9.2 g/dL (12.0-16.0) L 06/22/24 06:18
Hct 29.5 % (37.0-47.0) L 06/22/24 06:18
Plt Count 287 10^3/uL (130-400) 06/22/24 06:18
Sodium 139 mmol/L (135-145) 06/25/24 18:37
Potassium 3.7 mmol/L (3.5-5.1) 06/25/24 18:37
Chloride 105 mmol/L (98-107) 06/25/24 18:37
Carbon Dioxide 22 mmol/L (22-30) 06/25/24 18:37
BUN 20 mg/dl (7-17) H 06/25/24 18:37
Creatinine 0.9 mg/dL (0.6-1.0) 06/25/24 18:37
eGFR > 60.00 06/25/24 18:37
Glucose 201 mg/dl (70-99) H 06/25/24 18:37
Calcium 8.9 mg/dl (8.4-10.2) 06/25/24 18:37
Albumin 3.9 g/dl (3.5-5.0) 06/18/24 19:36
Physical Exam
-
Vital Signs:
Vital Signs
Temp Pulse Resp BP Pulse Ox
97.9 F 81 18 191/81 97
06/26/24 08:00 06/26/24 08:00 06/26/24 08:00 06/26/24 08:00 06/26/24 08:30
Cardiovascular:: Regular rate and rhythm
Respiratory:: Bilateral: CTA
Lung Excursion:: Normal
Abdomen:: Nontender and Soft
Extremity Edema:: +1: Left: and None: Right:
Hernandez Catheter: No
[2024-06-26] MEDS: ROCEPHIN 2000 MG IV (20:38)
[2024-06-26] MEDS: STERILE WATER FOR INJECTION 20 ML IV (20:39)
[2024-06-26 23:28] VITALS: BP 145/55
[2024-06-27] MEDS: TYLENOL 650 MG PO (01:55)
[2024-06-27 05:06] VITALS: BP 112/71
[2024-06-27 05:40] LABS: Blood Urea Nitrogen 31 mg/dl (7-17); Calcium 8.9 mg/dl (8.4-10.2); Carbon Dioxide 23 mmol/L (22-30); Chloride 108 mmol/L (98-107); Estimated Creatinine Clearance 39 ml/min; Glucose 116 mg/dl (70-99); Potassium 4.7 mmol/L (3.5-5.1); Sodium 139 mmol/L (135-145); eGFR > 60.00
[2024-06-27 06:00] VITALS: BMI 27.2
[2024-06-27 07:55] VITALS: BP 169/69
[2024-06-27] MEDS: CATAPRES 0.2 MG PO (08:36)
[2024-06-27] MEDS: ASPIR LOW (ENTERIC COATED) 81 MG PO (08:36)
[2024-06-27] MEDS: TOPROL XL 100 MG PO (08:36)
[2024-06-27] MEDS: APRESOLINE 25 MG PO (08:36)
[2024-06-27] MEDS: ALDACTONE 25 MG PO (08:37)
[2024-06-27] MEDS: ZESTRIL 20 MG PO (08:37)
[2024-06-27] MEDS: FEOSOL 325 MG PO (08:37)
[2024-06-27] MEDS: FLORASTOR 250 MG PO (08:37)
[2024-06-27] MEDS: NON-FORMULARY ITEM 1 UNIT PO (08:39)
[2024-06-27 09:56] VITALS: BP 110/39
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
--- NOTE | 2024-06-27 11:52 | W.DS.TRANS ---
Addendum entered and electronically signed by Khloe Myers MD 06/27/24 15:51:
Dictation- [id number]
Original Note:
DC Summary - [employer]
-
Discharge Instructions:
Discharge Diagnosis/Procedures Left lower extremity wound with cellulitis-
status post debridement and wound VAC placement
Acute kidney injury
Labile hypertension hypertension
Diverticulosis
Multilevel lumbar discogenic DJD
History of left lower extremity DVT in the past
Diet 2 Gram Sodium
Activity As tolerated
Driving Restrictions No driving
Blood Work CBC, BMP per prescriptions from infectious
disease
Other Services VN
Instructions:
Stand-Alone Forms:
Changes to Home Medications: Yes
Discharge Medications:
DC Medications w/original date entered in [employer]
aspirin 81 mg tablet,delayed release 81 mg PO DAILY Blood Clot Prevention/Tx 05/17/24
clonidine HCl 0.1 mg tablet 0.2 mg PO BID Blood Pressure 05/17/24
metoprolol succinate 100 mg tablet,extended release 24 hr (Toprol XL) 100 mg PO DAILY Blood Pressure 05/17/24
therapeutic multivitamin 1 tab PO DAILY Supplement 05/17/24
Saccharomyces boulardii 250 mg capsule 250 mg PO BID Supplement #0 caps 06/27/24
ceftriaxone 2 gram solution for injection 2,000 mg IV Q24H Infection #0 ea 06/27/24
ferrous sulfate 325 mg (65 mg iron) tablet (FeroSul) 325 mg PO DAILY anemia #0 tabs 06/27/24
hydralazine 25 mg tablet 25 mg PO BID Blood pressure #60 tabs 06/27/24
lisinopril 20 mg tablet 20 mg PO BID Blood pressure #60 tabs 06/27/24
spironolactone 25 mg tablet 25 mg PO DAILY Blood pressure #30 tabs 06/27/24
tramadol 50 mg tablet 25 mg (1/2 x 50 mg) PO Q6HPRN PRN moderate pain #20 tabs 06/27/24
Home Medication Changes
new
Hydralazine, tramadol, ceftriaxone are new
Lisinopril changed to 20 mg twice daily instead of 40 mg daily
Pending Results: No
--- NOTE | 2024-06-27 11:56 | W.DS.TRANS ---
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
-
Discharge Instructions:
Discharge Diagnosis/Procedures Left lower extremity wound with cellulitis-
status post debridement and wound VAC placement
Acute kidney injury
Labile hypertension hypertension
Diverticulosis
Multilevel lumbar discogenic DJD
History of left lower extremity DVT in the past
Diet 2 Gram Sodium
Activity As tolerated
Driving Restrictions No driving
Blood Work CBC, BMP per prescriptions from infectious
disease
Other Services VN
Instructions:
Stand-Alone Forms:
Changes to Home Medications: Yes
Discharge Medications:
DC Medications w/original date entered in [facility]
aspirin 81 mg tablet,delayed release 81 mg PO DAILY Blood Clot Prevention/Tx 05/17/24
clonidine HCl 0.1 mg tablet 0.2 mg PO BID Blood Pressure 05/17/24
metoprolol succinate 100 mg tablet,extended release 24 hr (Toprol XL) 100 mg PO DAILY Blood Pressure 05/17/24
therapeutic multivitamin 1 tab PO DAILY Supplement 05/17/24
Saccharomyces boulardii 250 mg capsule 250 mg PO BID Supplement #0 caps 06/27/24
ceftriaxone 2 gram solution for injection 2,000 mg IV Q24H Infection #0 ea 06/27/24
cholecalciferol (vitamin D3) 25 mcg (1,000 unit) tablet 25 mcg PO DAILY Supplement #0 tabs 06/27/24
cyanocobalamin (vitamin B-12) 1,000 mcg tablet 1,000 mcg PO DAILY Supplement #0 tabs 06/27/24
ferrous sulfate 325 mg (65 mg iron) tablet (FeroSul) 325 mg PO DAILY anemia #0 tabs 06/27/24
hydralazine 25 mg tablet 25 mg PO BID Blood pressure #60 tabs 06/27/24
lisinopril 20 mg tablet 20 mg PO BID Blood pressure #60 tabs 06/27/24
spironolactone 25 mg tablet 25 mg PO DAILY Blood pressure #30 tabs 06/27/24
tramadol 50 mg tablet 25 mg (1/2 x 50 mg) PO Q6HPRN PRN moderate pain #20 tabs 06/27/24
Home Medication Changes
Hydralazine, tramadol, ceftriaxone, B12, vitamin D are new
Lisinopril changed to 20 mg twice daily instead of 40 mg daily
Pending Results: No
[2024-06-27] MEDS: VITAMIN D3 (cholecalciferol) 25 MCG PO (12:22)
[2024-06-27] MEDS: VITAMIN B-12 1000 MCG PO (12:22)
--- NOTE | 2024-06-27 13:48 | CM ---
Pt for discharge today
[facility] to follow for IV ABX - teaching completed with daughter
[facility] to follow for Wound Vac care
Given IMM
Daughter to transport home
Plan - home with [facility]
--- NOTE | 2024-06-27 14:44 | W.PN.NEPH.PH ---
Today's Communication / Plan
-
for d/c today
Assessment/Plan
-
Assessment
Hypertension
Bilateral adrenaloma
Left lower leg cellulitis, hematoma/wound
GERD
Left lower leg DVT
ERICA
Plan:
HTN-seem to respond well to hydralazine as suggested by DR greene
cotn ACEI BID, clonidine and ALdactone
can use bumex prn basis
would need BMP in 1week post d/c
goal BP ~150 at this time.
secondary w/u unremarkable
d/w pt
-
-
Date of Service: June 27, 2024
CC / HPI / ROS
-
Chief Complaint:
HTN, ERICA
History of Present Illness:
Cr stable at 0.9 , k at 4.7
s/p I&D of left leg 06/21, now with VAC
BP better now
Review of Systems:
no cp or sob
feels well
no dysuria
pain controlled with tylenol
Labs
-
Labs:
WBC 4.7 10^3/uL (4.8-10.8) L 06/22/24 06:18
RBC 3.45 10^6/uL (4.20-5.40) L 06/22/24 06:18
Hgb 9.2 g/dL (12.0-16.0) L 06/22/24 06:18
Hct 29.5 % (37.0-47.0) L 06/22/24 06:18
Plt Count 287 10^3/uL (130-400) 06/22/24 06:18
Sodium 139 mmol/L (135-145) 06/27/24 04:58
Potassium 4.7 mmol/L (3.5-5.1) D 06/27/24 04:58
Chloride 108 mmol/L (98-107) H 06/27/24 04:58
Carbon Dioxide 23 mmol/L (22-30) 06/27/24 04:58
BUN 31 mg/dl (7-17) H 06/27/24 04:58
Creatinine 0.9 mg/dL (0.6-1.0) 06/27/24 04:58
eGFR > 60.00 06/27/24 04:58
Glucose 116 mg/dl (70-99) H 06/27/24 04:58
Calcium 8.9 mg/dl (8.4-10.2) 06/27/24 04:58
Albumin 3.9 g/dl (3.5-5.0) 06/18/24 19:36
Physical Exam
-
Vital Signs:
Vital Signs
Temp Pulse Resp BP Pulse Ox
98.3 F 67 18 110/39 95
06/27/24 07:55 06/27/24 07:55 06/27/24 07:55 06/27/24 09:56 06/27/24 08:00
Cardiovascular:: Regular rate and rhythm
Respiratory:: Bilateral: CTA
Lung Excursion:: Normal
Abdomen:: Nontender and Soft
Extremity Edema:: +1: Left: and None: Right:
Hernandez Catheter: No
--- NOTE | 2024-06-27 15:58 | CHAP ---
Ms. Heaton is happy to be going home - grateful for the good care she has received. She welcomed prayer, and appreciated receiving Rosary beads - 'I've been praying on my fingers!' she said. Emotional and spiritual support provided.
[2024-06-27 16:00] VITALS: BP 161/71
[2024-06-27] MEDS: LOVENOX 30 MG SC (17:15)
[2024-06-27] MEDS: STERILE WATER FOR INJECTION 20 ML IV (17:56)
[2024-06-27] MEDS: ROCEPHIN 2000 MG IV (17:56)
--- NOTE | 2024-06-28 07:11 | WOUNDNOTE ---
WO RN note: Notified [employer] via [employer] of [facility] rental vac [employer] pump date as of 06/27/24 and order picker (work order #[id number]). Faxed patient signed proof of delivery form stating on cover sheet start of home vac as of 06/27/24 to
Hannah Mcallister from [employer].
== END 2024-06-27 19:35 | disposition home health service (06) | DRG 574 ==
LOC: 2 NORTH 21:21
PROVIDERS: Registered Nurse; Student in an Organized Health Care Education/Training Program; ADMITTING PHYSICIAN Hospitalist; ATTENDING PHYSICIAN Hospitalist; CONSULT PHYSICIAN Internal Medicine Infectious Disease; CONSULT PHYSICIAN Specialist; CONSULT PHYSICIAN Surgery; EMERGENCY PHYSICIAN Emergency Medicine
PROC: 0YBJ0ZZ Excision of Left Lower Leg, Open Approach (ICD-10-PCS; 2024-06-21)
DX: L97.923 Non-pressure chronic ulcer of unspecified part of left lower leg with necrosis of muscle (principal); I82.4Z2 Acute embolism and thrombosis of unspecified deep veins of left distal lower extremity; L03.116 Cellulitis of left lower limb; N17.9 Acute kidney failure, unspecified; K57.32 Diverticulitis of large intestine without perforation or abscess without bleeding; S80.12XA Contusion of left lower leg, initial encounter; I10 Essential (primary) hypertension; K21.9 Gastro-esophageal reflux disease without esophagitis; B96.4 Proteus (mirabilis) (morganii) as the cause of diseases classified elsewhere; D50.9 Iron deficiency anemia, unspecified; E27.9 Disorder of adrenal gland, unspecified; K27.9 Peptic ulcer, site unspecified, unspecified as acute or chronic, without hemorrhage or perforation; K80.70 Calculus of gallbladder and bile duct without cholecystitis without obstruction; Z59.82 Transportation insecurity; Z66 Do not resuscitate; V89.2XXA Person injured in unspecified motor-vehicle accident, traffic, initial encounter; Y92.410 Unspecified street and highway as the place of occurrence of the external cause
CPT/HCPCS: 73701; 80048; 80053; 80202; 81003; 81015; 82088; 82306; 82384; 82533; 82607; 82728; 83036; 83540; 83550; 83605; 83735; 83835; 84244; 85025; 85027; 85652; 87040; 87070; 87077; 87186; 87205; 93005; 93975; 94760; 96374; 97116; 97161; 97165; 97530; 99285; Q9967

== ENCOUNTER → 2024-07-12 12:14 | Outpatient (REF) | payer OTHER, MEDICARE, SELFPAY | LOC: WOUND 12:14 | PROVIDERS: ATTENDING PHYSICIAN Surgery | DX: S80.12XA Contusion of left lower leg, initial encounter (principal); L97.223 Non-pressure chronic ulcer of left calf with necrosis of muscle; V89.2XXA Person injured in unspecified motor-vehicle accident, traffic, initial encounter | CPT/HCPCS: 11042; 11045; 99213 ==

== ENCOUNTER → 2024-07-26 13:08 | Outpatient (REF) | payer OTHER, MEDICARE, SELFPAY | LOC: WOUND 13:08 | PROVIDERS: ATTENDING PHYSICIAN Surgery | DX: S80.12XA Contusion of left lower leg, initial encounter (principal); L97.223 Non-pressure chronic ulcer of left calf with necrosis of muscle; V89.2XXA Person injured in unspecified motor-vehicle accident, traffic, initial encounter | CPT/HCPCS: 99213 ==

== ENCOUNTER → 2024-08-03 12:57 | Outpatient (REF) | payer OTHER, MEDICARE, SELFPAY | LOC: RAD 12:57 | PROVIDERS: ATTENDING PHYSICIAN Surgery Vascular Surgery | DX: I87.2 Venous insufficiency (chronic) (peripheral) (principal); R60.0 Localized edema | CPT/HCPCS: 93971 ==

== ENCOUNTER → 2024-08-09 13:03 | Outpatient (REF) | payer OTHER, MEDICARE, SELFPAY | LOC: WOUND 13:03 | PROVIDERS: ATTENDING PHYSICIAN Surgery | DX: S80.12XA Contusion of left lower leg, initial encounter (principal); L97.223 Non-pressure chronic ulcer of left calf with necrosis of muscle; V89.2XXA Person injured in unspecified motor-vehicle accident, traffic, initial encounter | CPT/HCPCS: 11042 ==

== ENCOUNTER → 2024-08-23 13:02 | Outpatient (REF) | payer OTHER, MEDICARE, SELFPAY | LOC: WOUND 13:02 | PROVIDERS: ATTENDING PHYSICIAN Surgery | DX: S80.12XA Contusion of left lower leg, initial encounter (principal); V89.2XXA Person injured in unspecified motor-vehicle accident, traffic, initial encounter | CPT/HCPCS: 99213 ==

== ENCOUNTER → 2024-09-06 13:33 | Outpatient (REF) | payer OTHER, MEDICARE, SELFPAY | LOC: WOUND 13:33 | PROVIDERS: ATTENDING PHYSICIAN Surgery | DX: S80.12XA Contusion of left lower leg, initial encounter (principal); L97.223 Non-pressure chronic ulcer of left calf with necrosis of muscle; X58.XXXA Exposure to other specified factors, initial encounter | CPT/HCPCS: 11042 ==

== ENCOUNTER → 2024-09-20 13:00 | Outpatient (REF) | payer OTHER, MEDICARE, SELFPAY | LOC: WOUND 13:00 | PROVIDERS: ATTENDING PHYSICIAN Surgery; FAMILY PHYSICIAN Internal Medicine | DX: S80.12XA Contusion of left lower leg, initial encounter (principal); L97.223 Non-pressure chronic ulcer of left calf with necrosis of muscle; V89.2XXA Person injured in unspecified motor-vehicle accident, traffic, initial encounter | CPT/HCPCS: 97597 ==

== ENCOUNTER → 2024-10-04 13:08 | Outpatient (REF) | payer OTHER, MEDICARE, SELFPAY | LOC: WOUND 13:08 | PROVIDERS: ATTENDING PHYSICIAN Surgery | DX: S80.12XA Contusion of left lower leg, initial encounter (principal); L97.223 Non-pressure chronic ulcer of left calf with necrosis of muscle; V89.2XXA Person injured in unspecified motor-vehicle accident, traffic, initial encounter | CPT/HCPCS: 97597 ==

== ENCOUNTER → 2024-10-19 13:03 | Outpatient (REF) | payer OTHER, MEDICARE, SELFPAY | LOC: WOUND 13:03 | PROVIDERS: ATTENDING PHYSICIAN Surgery | DX: S80.12XA Contusion of left lower leg, initial encounter (principal); L97.223 Non-pressure chronic ulcer of left calf with necrosis of muscle; V89.2XXA Person injured in unspecified motor-vehicle accident, traffic, initial encounter | CPT/HCPCS: 99212 ==

== ENCOUNTER → 2024-10-22 11:07 | Outpatient (REF) | payer MEDICARE, OTHER, SELFPAY | LOC: RCS 11:07 | PROVIDERS: ATTENDING PHYSICIAN Internal Medicine | DX: I49.9 Cardiac arrhythmia, unspecified (principal); I10 Essential (primary) hypertension; I11.9 Hypertensive heart disease without heart failure | CPT/HCPCS: 93306 ==